=== PATIENT | female | born 1960 | race Caucasian/White ===

== ENCOUNTER 2017-02-19 16:54 | Inpatient (IN) ==
[2017-02-19] MEDS ORDERED: DILTIAZEM 50 MG/10 ML VIAL IV STA (17:25)
[2017-02-19] MEDS ORDERED: ALUM/MAG/SIMETH/LIDO VISC 1:1 30 ML BOTTLE PO STA (17:25)
[2017-02-19] MEDS ORDERED: NITROGLYCERIN 2% OINT 1 INCH/GM PACK TOP STA (17:25)
[2017-02-19] MEDS ORDERED: ONDANSETRON 4 MG/2 ML VIAL IV STA (17:25)
[2017-02-19] MEDS ORDERED: HYDROmorphone 2 MG/1 ML VIAL IV STA (17:25)
[2017-02-19] MEDS ORDERED: ASPIRIN 325 MG TABLET PO STA (17:25)
--- NOTE | 2017-02-19 17:30 | EKG Report ---
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
--- NOTE | 2017-02-19 17:31 | Emergency Department Note ---
Erich Liz Brittany, am scribing for, and in the presence of, Britton Morfin MD 17:28. Navjot Liz Charles R, MD, personally performed the services described in this documentation, ascribed by Tennille Jung in my presence, and it is both accurate and complete [id number] . Arrival - Arrival Chief Complaint: Chest Pain Stated Complaint: chest pain ED Nursing Triage Note: Transfer from [facility] for further evaluation chest pain. +mid-sternal chest pain radiating into left chest, left arm, and mid -back onset 1000am. +nausea/vomiting. +pedal edema noted. Denies shortness of breath. Mode of Arrival: Stretcher Limitations: No Limitations Source: Patient, RN Notes Reviewed Time Seen by Provider: 02/19/17 17:14 - History of Present Illness HPI Narrative: Patient is a 57 y/o white female presenting to the ED by EMS from [facility] for further evaluation of chest pain due to [facility] being on Critical Care Diversion. Patient reports chest pain onset this morning around 1000 and was so severe she was tremorous. She describes pain as occurring mostly in the mid-sternal chest, radiating into the left chest wall, left upper extremity, and middle of her back. She has had some associated nausea , vomiting, and bilateral lower extremity edema with this. She states she has a history of Atrial Fibrillation and has been trying to go into Atrial Fibrillation all day. In room on the monitory patient actively went fin and out of Atrial Fibrillation during history and physical. She reports that within the past 4 years she has gone into Atrial Fibrillation about an estimated 10 times. Patient reports that in the past she has been admitted, placed on Heparin and then cardioverted later on. She does have a history of Mitral Valve Replacement and is currently on Coumadin. Patient has other complaint/pain. Onset (ago): hour(s) (7) Consistency: constant Severity: moderate Severity scale (1-10): 6 Quality: aching Date of Last Menstrual Period: hyst Allergies/Adverse Reactions: Allergies Allergy/AdvReac Type Severity Reaction Status Date / Time codeine Allergy Severe RASH Verified 02/19/17 17:03 iodine Allergy Severe Redness of Verified 02/19/17 17:03 Skin meperidine [From Demerol] Allergy Severe Agitated Verified 02/19/17 17:03 povidone-iodine Allergy Severe Redness of Verified 02/19/17 17:03 [From Betadine] Skin soap [From Betadine] Allergy Severe Redness of Verified 02/19/17 17:03 Skin Sulfa (Sulfonamide Allergy Severe Difficulty Verified 02/19/17 17:03 Antibiotics) Breathing Home Medications: Home Medications Medication Instructions Recorded Confirmed Type ALPRAZolam [Xanax] 0.5 mg PO QAM 02/19/17 02/19/17 History ALPRAZolam [Xanax] 2 mg PO BEDTIME 02/19/17 02/19/17 History Albuterol Inhaler [Proventil 2 puff INH Q6H PRN 02/19/17 02/19/17 History Inhaler] Amiodarone Tab [Cordarone Tab] 200 mg PO DAILY 02/19/17 02/19/17 History Atorvastatin [Lipitor] 40 mg PO BEDTIME 02/19/17 02/19/17 History Docusate Sodium 100 mg PO DAILY 02/19/17 02/19/17 History Fluticasone/Salmeterol 250-50 1 puff INH BID 02/19/17 02/19/17 History [Advair 250-50] Metoprolol Tartrate Tab [Lopressor 25 mg PO BID 02/19/17 02/19/17 History Tab] Oxymorphone HCl [Opana ER] 30 mg PO BID 02/19/17 02/19/17 History Potassium Chloride 8 meq PO DAILY 02/19/17 02/19/17 History Spironolactone 25 mg PO DAILY 02/19/17 02/19/17 History Tiotropium Inhalation [Spiriva 18 mcg INH DAILY 02/19/17 02/19/17 History Handihaler] Torsemide 40 mg PO BID 02/19/17 02/19/17 History Venlafaxine [Effexor] 75 mg PO DAILY 02/19/17 02/19/17 History Warfarin [Coumadin] 7.5 mg PO DAILY 02/19/17 02/19/17 History Review of System - Review of System 12 point system: reviewed and no additional remarkable complaints except as stated - Review of System Constitutional: Absent: chills, diaphoresis, fever Eyes: Absent: vision change Head/Ears/Nose/Throat: Absent: nasal drainage, sore throat Respiratory: Absent: respiratory distress Cardiovascular: Present: as per HPI, chest pain, palpitations, edema Gastrointestinal: Absent: abdominal pain, nausea, vomiting, diarrhea, constipation Genitourinary female: Absent: dysuria, frequency, urgency Musculoskeletal: Present: arm pain, back pain. Absent: leg pain, neck pain Skin: Absent: rash Neurological: Absent: headache Psychiatric: Absent: anxiety, depression Hematological/Lymphatic: Absent: easy bleeding, easy bruising Medical,Surgical,& Family Hx - Medical History Cardio: History of: Cardiac Dysrhythmia (A-fib), CHF, Hypertension Respiratory: History of: COPD Gastrointestinal: History of: GERD - Surgical History Cardiac Surgeries: Sugical HX of: Cardiac Surgery (mitral valve replacement) Reproductive Surgeries: Surgical HX of;: Hysterectomy - Social History Smoking Status: Current some day smoker Frequency of Alcohol Use: None Type of Drug Use: None Exam Vital Signs: Vital Signs Temperature 97.6 F 02/19/17 16:57 Pulse Rate 115 H 02/19/17 16:57 Respiratory Rate 20 02/19/17 16:57 Blood Pressure 122/71 02/19/17 16:57 O2 Sat by Pulse Oximetry 98 02/19/17 16:54 - General General appearance: alert, in no apparent distress - Head Head exam: Present: atraumatic, normocephalic, normal inspection - Eye Eye exam: Present: normal appearance, PERRL, EOMI - ENT ENT exam: Present: normal exam, normal oropharynx - Neck Neck exam: Present: normal inspection, full ROM, trachea midline - Chest Chest inspection: Present: normal inspection, symmetric chest wall rise - Respiratory Respiratory exam: Present: rhonchi (bilateral lung khan). Absent: normal lung sounds bilaterally - Cardiovascular Cardiovascular exam: Present: tachycardia, irregular rhythm. Absent: regular rate, normal rhythm, normal heart sounds (4/6 mechanical heart valve sounds) - Abdominal Exam Abdominal exam: Present: soft, normal bowel sounds. Absent: distention, tenderness - Extremities Exam Extremities exam: Present: full ROM, pedal edema (+2 edema to bilateral lower extremities) - Back Exam Back exam: Present: normal inspection - Neurological Exam Neurological exam: Present: alert, oriented X3, CN II-XII intact. Absent: motor sensory deficit - Psychiatric Psychiatric exam: Present: normal affect, normal mood - Skin Skin exam: Present: warm, dry, intact, normal color Course - Consultations Consultation #1: Hospitalist will admit patient Time: 17:22 Results - Labs CBC & BMP: 02/19/17 17:34 Lab Results: I have reviewed the patients labs Labs: All results reviewed from previous facility Laboratory Tests 02/19/17 02/19/17 17:34 17:34 WBC 7.8 RBC 3.67 L Hgb 10.8 L Hct 33.1 L MCV 90.2 MCH 29 MCHC 32.6 RDW 13.8 Plt Count 338 MPV 9.5 L Neut % (Auto) 53.8 Lymph % (Auto) 33.7 [place] % (Auto) 7.6 Eos % (Auto) 4.0 Baso % (Auto) 0.5 Neut # (Auto) 4.2 Lymph # (Auto) 2.6 [place] # (Auto) 0.6 Eos # (Auto) 0.3 Baso # (Auto) 0.0 Immature Gran % 0.4 Nucleated RBC % 0.0 Immature Gran # 0.03 Nucleated RBCs # 0.00 Urine Color Yellow Urine Appearance Clear Urine pH 6.0 Ur Specific [place] 1.012 Urine Protein Negative Urine Glucose (UA) Negative Urine Ketones 5 Urine Blood Small Urine Nitrate Negative Urine Bilirubin Negative Urine Urobilinogen < 2.0 H Urine Leukocytes Negative Urine RBC 2 Urine WBC 5 Ur Squamous Epith Cells Occasional Urine Mucus Occasional Laboratory Tests 02/19/17 02/19/17 17:34 17:34 INR 3.4 PT Patient/Control Mix 38.8 Urine Opiates Screen Positive H Ur Barbiturates Screen Negative Ur Phencyclidine Scrn Negative U Amphetamine/Methamph Negative U Benzodiazepines Scrn Positive H U Cocaine Metab Screen Negative U Cannabinoids Screen Negative Disposition Clinical Impression: Atypical chest pain, A. fib/flutter with RVR, Congestive heart failure Case discussed with: patient Disposition: Still a Patient Condition: Stable Time of Disposition: 17:30
[2017-02-19 17:46] LABS: Basophils % 0.5 % (0.0-0.8); Eosinophils # 0.3 10*3/uL (0.0-0.87); Hematocrit 33.1 VOL% (35.7-47.0); Hemoglobin 10.8 GM/DL (12.0-16.0); Immature Granulocytes % 0.4 %; Immature Granulocytes Absolute 0.03 #; Lymphocytes # 2.6 10*3/uL (1.4-4.0); Lymphocytes % 33.7 % (21.3-54.2); Mean Corpuscular HGB Conc 32.6 GM/DL (32-36); Mean Corpuscular Hemoglobin 29 PG (27-34); Mean Corpuscular Volume 90.2 FL (87-102); Mean Platelet Volume 9.5 FL (9.6-12.0); Monocytes # 0.6 10*3/uL (0.11-0.8); Monocytes % 7.6 % (1.7-12.7); Neutrophils # 4.2 10*3/uL (1.4-7.4); Neutrophils % 53.8 % (38.7-73.9); Platelet Count 338 T/CUMM (130-400); Red Blood Count 3.67 MC/CUMM (3.8-5.5); Red Cell Distribution Width 13.8 % (9.3-17.3); White Blood Count 7.8 T/CUMM (4-12)
[2017-02-19] MEDS ORDERED: ONDANSETRON 4 MG/2 ML VIAL ONE (17:49)
[2017-02-19] MEDS ORDERED: NITROGLYCERIN 2% OINT 1 INCH/GM PACK TOP ONE (17:49)
[2017-02-19] MEDS ORDERED: ASPIRIN 325 MG TABLET ONE (17:50)
[2017-02-19] MEDS ORDERED: ALUM/MAG/SIMETH/LIDO VISC 1:1 30 ML BOTTLE PO ONE (17:50)
[2017-02-19] MEDS ORDERED: DILTIAZEM 50 MG/10 ML VIAL IV ONE (17:50)
[2017-02-19] MEDS ORDERED: HYDROmorphone 2 MG/1 ML VIAL ONE (17:50)
[2017-02-19 17:52] LABS: Apearance,Urine CLEAR (Clear); Bilirubin,Urine Negative (Negative); Blood, Urine Small mg/dL (Negative); Glucose,Urine (UA) Negative (Negative); Ketones,Urine 5 mg/dL (Negative); Mucus,Urine Occasional /LPF (Occasional); Nitrite,Urine Negative (Negative); Protein,Urine Negative; RBC,Urine 2 /HPF (0-4); Squamous Epithelial Cell,Urine Occasional /HPF (0-10); Urine Color Yellow (Yellow); Urine Specific Gravity 1.012 (1.001-1.035); Urine Urobilinogen < 2.0 EU/DL (0.2-1.0); WBC,Urine 5 /HPF (0-6)
[2017-02-19 17:54] LABS: INR 3.4
[2017-02-19 17:55] LABS: PT Patient Result 38.8 SECS
[2017-02-19 17:57] LABS: Barbiturates Screen,Urine Negative (Negative); Benzodiazepines Screen,Urine Positive (Negative); Cannabinoid Screen,Urine Negative (Negative); Opiate Screen,Urine Positive (Negative); Phencyclidine Screen,Urine Negative (Negative)
[2017-02-19] MEDS ORDERED: ZALEPLON 5 MG CAPSULE PO PRN (17:59)
[2017-02-19] MEDS ORDERED: ACETAMINOPHEN 325 MG TABLET PO PRN (17:59)
[2017-02-19] MEDS ORDERED: MORPHINE 2 MG/1 ML SYRINGE IV PRN (18:06)
--- NOTE | 2017-02-19 18:11 | Hospitalist History & Physical ---
Assessment and Plan (1) Atrial fibrillation with RVR Status: Acute Current Visit: Yes (2) Kidney mass Status: Acute Current Visit: Yes (3) Chronic back pain Status: Acute Current Visit: Yes (4) Atypical chest pain Status: Acute Assessment and plan: Plan for this patient will be admitting to telemetry. Will consult cardiology. I suspect some of her A. fib with RVR might be associated with noncompliant she said that she had not had any heart medications today. Therefore think would be prudent not to start a diltiazem drip at this time. We need to hold her Coumadin and recheck an INR tomorrow. Regarding this pain and this mass in her kidney will request CT report from [facility] and proceed from there. Current Visit: Yes History of Present Illness Chief complaint: Chest pain fast heart rate History of present illness: Ms. Khan is a 57 year old female with past medical history significant for atrial fibrillation valve replacement chronic back pain kidney mass hypertension who woke up this morning with an accelerated heart rate. She had the sensation that she was trembling. She is checked her heart rate was 125 it would go up to 136 at times. She has been having sharp pain that radiates to her shoulder. She has some shortness of breath and diaphoresis associated with it. She reports that she is nauseated. She is also complaining about some pain on her left flank. And notices pain with urination. She has a history of a kidney mass that was discovered at [facility]. She is having pain in this area and wants this addressed while she is here in the hospital. Home Medications Medication Instructions Recorded Confirmed Type ALPRAZolam [Xanax] 0.5 mg PO QAM 02/19/17 02/19/17 History ALPRAZolam [Xanax] 2 mg PO BEDTIME 02/19/17 02/19/17 History Albuterol Inhaler [Proventil 2 puff INH Q6H PRN 02/19/17 02/19/17 History Inhaler] Amiodarone Tab [Cordarone Tab] 200 mg PO DAILY 02/19/17 02/19/17 History Atorvastatin [Lipitor] 40 mg PO BEDTIME 02/19/17 02/19/17 History Docusate Sodium 100 mg PO DAILY 02/19/17 02/19/17 History Fluticasone/Salmeterol 250-50 1 puff INH BID 02/19/17 02/19/17 History [Advair 250-50] Metoprolol Tartrate Tab [Lopressor 25 mg PO BID 02/19/17 02/19/17 History Tab] Oxymorphone HCl [Opana ER] 30 mg PO BID 02/19/17 02/19/17 History Potassium Chloride 8 meq PO DAILY 02/19/17 02/19/17 History Spironolactone 25 mg PO DAILY 02/19/17 02/19/17 History Tiotropium Inhalation [Spiriva 18 mcg INH DAILY 02/19/17 02/19/17 History Handihaler] Torsemide 40 mg PO BID 02/19/17 02/19/17 History Venlafaxine [Effexor] 75 mg PO DAILY 02/19/17 02/19/17 History Warfarin [Coumadin] 7.5 mg PO DAILY 02/19/17 02/19/17 History Allergies Allergy/AdvReac Type Severity Reaction Status Date / Time codeine Allergy Severe RASH Verified 02/19/17 17:03 iodine Allergy Severe Redness of Verified 02/19/17 17:03 Skin meperidine [From Demerol] Allergy Severe Agitated Verified 02/19/17 17:03 povidone-iodine Allergy Severe Redness of Verified 02/19/17 17:03 [From Betadine] Skin soap [From Betadine] Allergy Severe Redness of Verified 02/19/17 17:03 Skin Sulfa (Sulfonamide Allergy Severe Difficulty Verified 02/19/17 17:03 Antibiotics) Breathing Medical,Surgical,& Family Hx - Medical History Cardio: History of: Cardiac Dysrhythmia (A-fib), CHF, Hypertension Respiratory: History of: COPD Gastrointestinal: History of: GERD - Surgical History Cardiac Surgeries: Sugical HX of: Cardiac Surgery (mitral valve replacement) Reproductive Surgeries: Surgical HX of;: Hysterectomy - Family History Family History: Reports;: Family Cancer, Family Heart Disease - Social History Smoking Status: Current some day smoker Frequency of Alcohol Use: None Type of Drug Use: None 12 point system: reviewed and no additional remarkable complaints except as stated Exam - Constitutional Vitals: - General General appearance: alert, in no apparent distress - Head Head exam: Present: atraumatic, normocephalic, normal inspection - Eye Eye exam: Present: normal appearance, PERRL, EOMI - ENT ENT exam: Present: normal exam, normal oropharynx - Neck Neck exam: Present: normal inspection, full ROM, trachea midline - Chest Chest inspection: Present: normal inspection, symmetric chest wall rise - Respiratory Respiratory exam: Present: Coarse breath sounds bilaterally - Cardiovascular Cardiovascular exam: Present: tachycardia, irregular rhythm mechanical heart valve sounds appreciated. - Abdominal Exam Abdominal exam: Present: soft, normal bowel sounds. Absent: distention, tenderness - Extremities Exam Extremities exam: Present: full ROM, pedal edema (+2 edema to bilateral lower extremities) - Back Exam Back exam: Present: normal inspection some left lower tenderness appreciated - Neurological Exam Neurological exam: Present: alert, oriented X3, CN II-XII intact. Absent: motor sensory deficit - Psychiatric Psychiatric exam: Present: normal affect, normal mood - Skin Skin exam: Present: warm, dry, intact, normal color Results - Labs CBC & BMP: 02/19/17 17:34 Labs: Labs from outside facility proBNP 2159 troponin less than 0.03 CK-MB 1 starting anatomy and valve replacement surgery without acute pathology previous cervical fusion white count 7.5 hemoglobin 11.9 hematocrit 36.4 platelets 329 INR 3.1 sodium 141 potassium 3.8 chloride 103 bicarb 26 creatinine 1.1 BUN 22 calcium 9.4 glucose 94 total bili 0.6 total protein 7.4 albumin 4.5 globulin 2.9 ALT 18 AST 33 magnesium 2.2 creatinine kinase 109
[2017-02-19 18:26] LABS: Bilirubin,Total 0.5 MG/DL (0.2-1.0); Calcium 9.2 MG/DL (8.5-10.1); Magnesium 2.4 MG/DL (1.8-2.4); Osmolality,Calculated 281.3 MOS/KG (273-304); Total Protein 6.7 G/DL (6.4-8.3)
[2017-02-19 18:43] LABS: Risk Ratio 3.08
[2017-02-19] MEDS: IPRATROPIUM 500 MCG/2.5 ML NEB RESP TX SCH (19:19)
[2017-02-19] MEDS ORDERED: ALBUTEROL 2.5 MG/3 ML NEB RESP TX PRN (19:30)
[2017-02-19] MEDS: ATORVASTATIN 40 MG TABLET PO SCH (20:41)
[2017-02-19] MEDS: ALPRAZolam 0.5 MG TABLET PO SCH (20:41)
[2017-02-19] MEDS: AMIODARONE 200 MG TABLET PO SCH (20:41)
[2017-02-19] MEDS: ONDANSETRON 4 MG/2 ML VIAL IV PRN (20:41)
[2017-02-19] MEDS: METOPROLOL TARTRATE 25 MG TABLET PO SCH (20:41)
[2017-02-19] MEDS: NITROGLYCERIN 2% OINT 1 INCH/GM PACK TOP SCH (20:42)
[2017-02-19] MEDS: FLUTICASONE/SALMETEROL 250-50 DISKUS 14 DOSE INH SCH (20:42)
[2017-02-19] MEDS: TORSEMIDE 20 MG TABLET PO SCH (20:50)
[2017-02-19] MEDS ORDERED: OXYMORPHONE HCL 30 MG PO SCH (21:00)
[2017-02-19] MEDS: MORPHINE 2 MG/1 ML SYRINGE IV PRN (22:15)
[2017-02-20] MEDS: NITROGLYCERIN 2% OINT 1 INCH/GM PACK TOP SCH ×4 (02:06→17:26)
[2017-02-20] MEDS: MORPHINE 2 MG/1 ML SYRINGE IV PRN ×2 (03:22→08:51)
[2017-02-20] MEDS: ONDANSETRON 4 MG/2 ML VIAL IV PRN ×3 (03:22→21:48)
[2017-02-20 05:33] LABS: INR 3.3; PT Patient Result 37.5 SECS
--- NOTE | 2017-02-20 07:02 | Physician Query Form ---
CLICK EDIT DOCUMENT TO SELECT QUERY ANSWER --> OK --> SIGN Dee Israel RN, CCDS Certified Clinical Varnish Finisher W) [phone] (f) [phone] [email or web address] PROVIDERS: Make your selection(s) from the choices in EACH section by typing an "x" and enter comments in the comment section. Please use your independent medical judgment in providing your response. This request does not imply that any particular answer is desired or expected. CLINICAL INDICATORS: (Providers should not edit this section) The medical record indicates that the patient was admitted with AF/RVR, BNP of 448#, "Present: rhonchi (bilateral lung khan)", history of CHF, and the patient is a on Aldactone (PO). Please provide further specificity regarding CHF. ACUITY: ( ) Chronic ( ) Acute on Chronic ( ) Clinically unable to determine TYPE: ( ) Systolic ( ) Diastolic ( ) Combined Systolic/Diastolic ( ) Other, please specify: ( ) Clinically unable to determine ( ) The patient does NOT have CHF COMMENTS: Use of terms such as suspected, likely, or probable (associated with a specific diagnosis that is being evaluated, monitored, or treated as if it exists) are acceptable and can be restated in the discharge summary if not ruled out. MTDD
[2017-02-20] MEDS: IPRATROPIUM 500 MCG/2.5 ML NEB RESP TX SCH ×4 (07:05→20:43)
[2017-02-20] MEDS: DOCUSATE SODIUM 100 MG CAPSULE PO SCH (08:57)
[2017-02-20] MEDS: POTASSIUM CHLORIDE 8 MEQ CAPSULE PO SCH (08:57)
[2017-02-20] MEDS: AMIODARONE 200 MG TABLET PO SCH ×2 (08:57→21:46)
[2017-02-20] MEDS: METOPROLOL TARTRATE 25 MG TABLET PO SCH ×3 (08:58→21:47)
[2017-02-20] MEDS: ALPRAZolam 0.5 MG TABLET PO SCH ×2 (08:58→21:47)
[2017-02-20] MEDS: VENLAFAXINE 75 MG TABLET PO SCH (08:58)
[2017-02-20] MEDS: SPIRONOLACTONE 25 MG TABLET PO SCH ×2 (08:58→09:09)
[2017-02-20] MEDS: FLUTICASONE/SALMETEROL 250-50 DISKUS 14 DOSE INH SCH ×2 (08:59→22:46)
[2017-02-20] MEDS: TORSEMIDE 20 MG TABLET PO SCH ×3 (08:59→21:45)
--- NOTE | 2017-02-20 09:06 | EKG Report ---
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
--- NOTE | 2017-02-20 09:09 | Ultrasound Report ---
Exam: US renal Bilateral Date: 02/20/2017 7:28 AM Comparison: None Indication: Flank pain, renal mass Technique:[Multiple transabdominal real-time scans were obtained of the kidneys. Color flow scans obtained. Ultrasound images were captured and stored.] Findings: Right kidney measures 108 x 47 x 42 mm. Left kidney measures 109 x 52 x 43 mm. No hydronephrosis. 21 x 19 x 14 mm solid left midpole renal mass. 41 x 38 x 38 mm solid left lower pole renal mass. Color flow documented in the kidneys. Impression: No hydronephrosis. 21 mm and 41 mm solid left renal masses which may be related to renal cell carcinoma, etc. Renal CT recommended for further evaluation. PROCEDURE INTERPRETED AT [facility] DEPARTMENT OF RADIOLOGY Final Report Signed by: Dr. Christa Marcum
--- NOTE | 2017-02-20 09:30 | Cardiology Consult Note ---
<Marti Barry - Last Filed: 02/20/17 09:28> Assessment and Plan - Time spent with patient Time spent with patient: Greater than 30 minutes (1) Atrial fibrillation with RVR Status: Acute Assessment and plan: Patient has history of paroxysmal atrial fibrillation and takes amiodarone 200 mg daily at home. At this point, we give her a one-time dose of amiodarone IV and increase her amiodarone to 400 mg p.o. twice daily. Continue beta-blockade and Coumadin. Daily INR. BNP mildly elevated at 448. Patient confirms history of CHF. I have ordered a chest x-ray and echocardiogram to further evaluate this. Further plan and addendum to follow per Dr. Ge. Current Visit: Yes (2) Atypical chest pain Status: Acute Assessment and plan: This is most likely secondary to patient's atrial fibrillation. Patient has ruled out for myocardial infarction, troponin negative 3. I suspect this will resolve once she is rate controlled. Current Visit: Yes (3) Kidney mass Status: Acute Assessment and plan: Patient underwent renal ultrasound this morning which revealed a 21 mm and 41 mm left renal mass. Defer further workup of this to hospital medicine. Current Visit: Yes (4) COPD (chronic obstructive pulmonary disease) Status: Chronic Assessment and plan: This is clinically stable. Continue current plan of care. Defer management to hospital medicine. Current Visit: Yes (5) Tobacco abuse Status: Chronic Assessment and plan: Smoking cessation encouraged. Current Visit: Yes (6) Chronic back pain Status: Chronic Current Visit: Yes History of Present Illness - Data of Consult Patient: known to practice within the last 3 years Consult date: 02/20/17 Requesting Physician: Socrates Ingram - Consult Narrative Reason for consult: A. 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 Khan is a 57 year old female who is routinely followed by Dr. Bee at [place]. Patient was transferred from [facility] for further evaluation of chest discomfort and atrial fibrillation with rapid ventricular response. Patient has cardiac risk factors significant for hyperlipidemia, sedentary lifestyle and current everyday smoker. Patient has past medical history of paroxysmal atrial fibrillation, [place] mechanical mitral valve ( on chronic anticoagulation with Coumadin), COPD, CHF and chronic back pain. 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 At that time, her ejection fraction was noted to be 70%. She reports that she last saw Dr. Bee approximately 3-4 months ago. She was in her usual state of health until yesterday morning when she awoke she reports feeling "jittery." She tells me that she could tell that she was in atrial fibrillation. She took her BP with home machine, SBP was 187 with a heart rate of 125. At that time she knew that she needed to present to ER for further evaluation. She confirms mild mid sternal sharp chest pain, dizziness, palpitations and shortness of breath was associated with this. Her chest pain is not worsened with exertion. She is unable to identify any specific alleviating or aggravating factors. Upon arrival to ER he was noted to be atrial fibrillation with a heart rate of 120. She was given 10 mg IV Cardizem in the ER. She remains in atrial fibrillation with a rapid ventricular response with heart rate ranging from 110-120. She has been admitted under Hospitalist's service and cardiology has been consulted further management of her atrial fibrillation. Of note, patient also confirms orthopnea and dyspnea on exertion. BNP is noted to be 448. I have ordered a chest x-ray as well as echocardiogram. Patient was seen and examined on the telemetry unit. She remains in atrial fibrillation with heart rate of 116. She is currently being anticoagulated with Coumadin. Patient has mechanical mitral valve, INR today is therapeutic at 3.4. Will continue with daily INRs. Patient continues to complain of mild chest discomfort. She reports that this has been constant since yesterday morning. However, her troponin has been negative 3 checks. EKG is unchanged. BNP is mildly elevated at 448. I have ordered a chest x-ray and echocardiogram. She underwent renal ultrasound earlier this morning which revealed a 21 mm and 41 mm left renal mass. Will defer further workup of this to hospital medicine. At this point, we will increase her amiodarone to 400 mg BID and attempt to rate control her. Will discuss further with Dr. Ge, further plan and addendum to follow. CC: Vicente Muñoz MD - Home Medications and Allergies Home Medications: Home Medications Medication Instructions Recorded Confirmed Type ALPRAZolam [Xanax] 0.5 mg PO QAM 02/19/17 02/19/17 History ALPRAZolam [Xanax] 2 mg PO BEDTIME 02/19/17 02/19/17 History Albuterol Inhaler [Proventil 2 puff INH Q6H PRN 02/19/17 02/19/17 History Inhaler] Amiodarone Tab [Cordarone Tab] 200 mg PO DAILY 02/19/17 02/19/17 History Atorvastatin [Lipitor] 40 mg PO BEDTIME 02/19/17 02/19/17 History Docusate Sodium 100 mg PO DAILY 02/19/17 02/19/17 History Fluticasone/Salmeterol 250-50 1 puff INH BID 02/19/17 02/19/17 History [Advair 250-50] Metoprolol Tartrate Tab [Lopressor 25 mg PO BID 02/19/17 02/19/17 History Tab] Oxymorphone HCl [Opana ER] 30 mg PO BID 02/19/17 02/19/17 History Potassium Chloride 8 meq PO DAILY 02/19/17 02/19/17 History Spironolactone 25 mg PO DAILY 02/19/17 02/19/17 History Tiotropium Inhalation [Spiriva 18 mcg INH DAILY 02/19/17 02/19/17 History Handihaler] Torsemide 40 mg PO BID 02/19/17 02/19/17 History Venlafaxine [Effexor] 75 mg PO DAILY 02/19/17 02/19/17 History Warfarin [Coumadin] 7.5 mg PO DAILY 02/19/17 02/19/17 History Allergies/Adverse Reactions: Allergies Allergy/AdvReac Type Severity Reaction Status Date / Time codeine Allergy Severe RASH Verified 02/19/17 17:03 iodine Allergy Severe Redness of Verified 02/19/17 17:03 Skin meperidine [From Demerol] Allergy Severe Agitated Verified 02/19/17 17:03 povidone-iodine Allergy Severe Redness of Verified 02/19/17 17:03 [From Betadine] Skin soap [From Betadine] Allergy Severe Redness of Verified 02/19/17 17:03 Skin Sulfa (Sulfonamide Allergy Severe Difficulty Verified 02/19/17 17:03 Antibiotics) Breathing - Constitutional Constitutional: Present: weakness. Absent: chills, fever(s), frequent falls, headache(s) - Cardiovascular Cardiovascular: Present: as per HPI, dyspnea, edema, lightheadedness, orthopnea , palpitations. Absent: diaphoresis, radiating jaw, neck or arm pain - Respiratory Respiratory: Present: dyspnea. Absent: cough, hemoptysis, wheezing, snoring, pain on inspiration, change in phlegm color - Gastrointestinal Gastrointestinal: Absent: abdominal pain, change in bowel habits, coffee ground emesis, constipation, cramping, diarrhea, hematemesis, hematochezia, loose stools, melena, nausea, vomiting - Genitourinary Genitourinary: Absent: dysuria, hematuria - Neurological Neurological: Present: dizziness. Absent: abnormal gait, abnormal speech, behavioral changes, frequent falls, headache(s), syncope - Hematologic/Lymphatic Hematologic/Lymphatic: Absent: easy bleeding, easy bruising, lymphadenopathy Medical,Surgical,& Family Hx - Medical History Cardio: History of: Cardiac Dysrhythmia (A-fib), CHF, Hypertension Respiratory: History of: COPD Renal: History of: Renal Problems (renal mass) Gastrointestinal: History of: GERD Musculoskeletal: History of: Back/Neck Problems - Surgical History Cardiac Surgeries: Sugical HX of: Cardiac Catheterization, Cardiac Surgery ( mitral valve replacement) Abdominal Surgeries: Surgical HX of: Abdominal Surgery Reproductive Surgeries: Surgical HX of;: Hysterectomy - Family History Family History: Reports;: Family Cancer Denies;: Family Heart Disease - Social History Smoking Status: Current every day smoker Frequency of Alcohol Use: None Type of Drug Use: None Physical Examination Vital Signs Temp Pulse Resp BP Pulse Ox 97.6 F 115 H 20 122/71 98 02/19/17 16:54 02/19/17 16:54 02/19/17 16:54 02/19/17 16:54 02/19/17 16:54 General: Present: Appears Well, No Apparent Distress HEENT: Present: Normocephaly Neck: Present: Supple Neck, Midline Trachea, No JVD/HJR, No Masses, No Bruit Cardiac: Present: Irregularly Regular, Tachycardia, Other (mechanical Mitral valve sounds appreciated ) Lungs: Present: Normal Exam, Clear Ascult./Percussion, Normal Breath Sounds, No Wheeze, Rales, Rhonchi Abdomen: Present: Soft, Active Bowel Sounds, Non-Tender. Absent: Firm, Distended Skin: Present: Clear. Absent: Rash, Suspicious Lesions, Ulceration Extremities: Present: Normal Gait, No Clubbing, No Cyanosis, Normal Upper Extr. Pulses, Normal Lower Extr. Pulses, Edema (trace BLE edema ) Result/EKG - Labs CBC & BMP: 02/19/17 17:34 02/19/17 17:34 Lab Results: I have reviewed the past 24 hour labs Labs: Laboratory Results - last 24 hr 02/19/17 02/19/17 02/19/17 17:34 17:34 17:34 WBC RBC Hgb Hct MCV MCH MCHC RDW Plt Count MPV Neut % (Auto) Lymph % (Auto) Mckenzie % (Auto) Eos % (Auto) Baso % (Auto) Neut # (Auto) Lymph # (Auto) Mckenzie # (Auto) Eos # (Auto) Baso # (Auto) Immature Gran % Nucleated RBC % Immature Gran # Nucleated RBCs # INR 3.4 PT Patient/Control Mix 38.8 Sodium 141 Potassium 4.0 Chloride 108 H Carbon Dioxide 26 Anion Gap 11.0 BUN 19 H Creatinine 1.10 H GFR Calculation 61 BUN/Creatinine Ratio 17.00 Glucose 84 Calculated Osmolality 281.3 Calcium 9.2 Magnesium 2.4 Total Bilirubin 0.50 AST 20 ALT 10 L Alkaline Phosphatase 75 Troponin I B-Natriuretic Peptide Total Protein 6.7 Albumin 4.0 Globulin 2.7 Albumin/Globulin Ratio 1.4 Triglycerides Cholesterol LDL Cholesterol VLDL Cholesterol HDL Cholesterol Heart Disease Risk Ratio Lipase 146.0 Urine Color Yellow Urine Appearance Clear Urine pH 6.0 Ur Specific Candler 1.012 Urine Protein Negative Urine Glucose (UA) Negative Urine Ketones 5 Urine Blood Small Urine Nitrate Negative Urine Bilirubin Negative Urine Urobilinogen < 2.0 H Urine Leukocytes Negative Urine RBC 2 Urine WBC 5 Ur Squamous Epith Cells Occasional Urine Mucus Occasional Ur Culture Indicated? Not indicated Urine Opiates Screen Ur Barbiturates Screen Ur Phencyclidine Scrn U Amphetamine/Methamph U Benzodiazepines Scrn U Cocaine Metab Screen U Cannabinoids Screen 02/19/17 02/19/17 02/19/17 17:34 17:34 17:34 WBC 7.8 RBC 3.67 L Hgb 10.8 L Hct 33.1 L MCV 90.2 MCH 29 MCHC 32.6 RDW 13.8 Plt Count 338 MPV 9.5 L Neut % (Auto) 53.8 Lymph % (Auto) 33.7 Mckenzie % (Auto) 7.6 Eos % (Auto) 4.0 Baso % (Auto) 0.5 Neut # (Auto) 4.2 Lymph # (Auto) 2.6 Mckenzie # (Auto) 0.6 Eos # (Auto) 0.3 Baso # (Auto) 0.0 Immature Gran % 0.4 Nucleated RBC % 0.0 Immature Gran # 0.03 Nucleated RBCs # 0.00 INR PT Patient/Control Mix Sodium Potassium Chloride Carbon Dioxide Anion Gap BUN Creatinine GFR Calculation BUN/Creatinine Ratio Glucose Calculated Osmolality Calcium Magnesium Total Bilirubin AST ALT Alkaline Phosphatase Troponin I B-Natriuretic Peptide 448 H Total Protein Albumin Globulin Albumin/Globulin Ratio Triglycerides Cholesterol LDL Cholesterol VLDL Cholesterol HDL Cholesterol Heart Disease Risk Ratio Lipase Urine Color Urine Appearance Urine pH Ur Specific Candler Urine Protein Urine Glucose (UA) Urine Ketones Urine Blood Urine Nitrate Urine Bilirubin Urine Urobilinogen Urine Leukocytes Urine RBC Urine WBC Ur Squamous Epith Cells Urine Mucus Ur Culture Indicated? Urine Opiates Screen Positive H Ur Barbiturates Screen Negative Ur Phencyclidine Scrn Negative U Amphetamine/Methamph Negative U Benzodiazepines Scrn Positive H U Cocaine Metab Screen Negative U Cannabinoids Screen Negative 02/19/17 02/19/17 02/19/17 17:34 17:34 21:07 WBC RBC Hgb Hct MCV MCH MCHC RDW Plt Count MPV Neut % (Auto) Lymph % (Auto) Mckenzie % (Auto) Eos % (Auto) Baso % (Auto) Neut # (Auto) Lymph # (Auto) Mckenzie # (Auto) Eos # (Auto) Baso # (Auto) Immature Gran % Nucleated RBC % Immature Gran # Nucleated RBCs # INR PT Patient/Control Mix Sodium Potassium Chloride Carbon Dioxide Anion Gap BUN Creatinine GFR Calculation BUN/Creatinine Ratio Glucose Calculated Osmolality Calcium Magnesium Total Bilirubin AST ALT Alkaline Phosphatase Troponin I < 0.015 < 0.015 B-Natriuretic Peptide Total Protein Albumin Globulin Albumin/Globulin Ratio Triglycerides 120 Cholesterol 185 LDL Cholesterol 102.0 VLDL Cholesterol 24.0 HDL Cholesterol 60 Heart Disease Risk Ratio 3.08 Lipase Urine Color Urine Appearance Urine pH Ur Specific Candler Urine Protein Urine Glucose (UA) Urine Ketones Urine Blood Urine Nitrate Urine Bilirubin Urine Urobilinogen Urine Leukocytes Urine RBC Urine WBC Ur Squamous Epith Cells Urine Mucus Ur Culture Indicated? Urine Opiates Screen Ur Barbiturates Screen Ur Phencyclidine Scrn U Amphetamine/Methamph U Benzodiazepines Scrn U Cocaine Metab Screen U Cannabinoids Screen 02/20/17 02/20/17 00:01 04:33 WBC RBC Hgb Hct MCV MCH MCHC RDW Plt Count MPV Neut % (Auto) Lymph % (Auto) Mckenzie % (Auto) Eos % (Auto) Baso % (Auto) Neut # (Auto) Lymph # (Auto) Mckenzie # (Auto) Eos # (Auto) Baso # (Auto) Immature Gran % Nucleated RBC % Immature Gran # Nucleated RBCs # INR 3.3 PT Patient/Control Mix 37.5 Sodium Potassium Chloride Carbon Dioxide Anion Gap BUN Creatinine GFR Calculation BUN/Creatinine Ratio Glucose Calculated Osmolality Calcium Magnesium Total Bilirubin AST ALT Alkaline Phosphatase Troponin I < 0.015 B-Natriuretic Peptide Total Protein Albumin Globulin Albumin/Globulin Ratio Triglycerides Cholesterol LDL Cholesterol VLDL Cholesterol HDL Cholesterol Heart Disease Risk Ratio Lipase Urine Color Urine Appearance Urine pH Ur Specific Candler Urine Protein Urine Glucose (UA) Urine Ketones Urine Blood Urine Nitrate Urine Bilirubin Urine Urobilinogen Urine Leukocytes Urine RBC Urine WBC Ur Squamous Epith Cells Urine Mucus Ur Culture Indicated? Urine Opiates Screen Ur Barbiturates Screen Ur Phencyclidine Scrn U Amphetamine/Methamph U Benzodiazepines Scrn U Cocaine Metab Screen U Cannabinoids Screen <Socrates Ge Vladislav - Last Filed: 02/20/17 11:34> History of Present Illness - Consult Narrative History of present illness: This personally interviewed and examined by me and chart reviewed. Discussed this patient's case with Marti Barry NP. Agree with the assessment evaluation and examination. In addition estimation Ms. Khan is a 57 year old female who was admitted with an episode of atrial fibrillation rapid ventricular response. She has a prior history of atrial fibrillation and episodes of RVR. She has been on amiodarone. She has been on warfarin is been adequately anticoagulated is demonstrated are INR admission. This though is persistently for her mechanical [employer]ir mitral valve. She is followed by Dr. Bee at [place]. And her ventricle response is still elevated we will manage his with medications as well as bolus of amiodarone. If she does not convert to sinus rhythm after cardioversion would be a consideration. Since she is adequately anticoagulated she will be at low stroke risk. Her troponins have been undetectable 3. She has chest pain radiating through to her back but will but is had this chronically. She is his lower back and neck pain. She takes chronic pain medications at home. She is followed by a physician in [facility] pain clinic. Most marked conversation was centered around her pain medications and the fact that she may need more pain medication she at least and she may run out before her appointment. CC: Vicente Muñoz MD Physical Examination Vital Signs Temp Pulse Resp BP Pulse Ox 97.6 F 115 H 20 122/71 98 02/19/17 16:54 02/19/17 16:54 02/19/17 16:54 02/19/17 16:54 02/19/17 16:54 I Other: Exam is as noted. Lungs are clear Cardiovascular irregular rhythm is tachycardic. She has crisp mechanical valve sounds of her [employer] mitral valve prosthesis. Extremities: No edema. Neurologic: Alert and cooperative but is anxious. Psychiatric: Anxious but cognitive function is normal. Result/EKG - Labs CBC & BMP: 02/19/17 17:34 02/19/17 17:34 Labs: Laboratory Results - last 24 hr 02/19/17 02/19/17 02/19/17 17:34 17:34 17:34 WBC RBC Hgb Hct MCV MCH MCHC RDW Plt Count MPV Neut % (Auto) Lymph % (Auto) Mckenzie % (Auto) Eos % (Auto) Baso % (Auto) Neut # (Auto) Lymph # (Auto) Mckenzie # (Auto) Eos # (Auto) Baso # (Auto) Immature Gran % Nucleated RBC % Immature Gran # Nucleated RBCs # INR 3.4 PT Patient/Control Mix 38.8 Sodium 141 Potassium 4.0 Chloride 108 H Carbon Dioxide 26 Anion Gap 11.0 BUN 19 H Creatinine 1.10 H GFR Calculation 61 BUN/Creatinine Ratio 17.00 Glucose 84 Calculated Osmolality 281.3 Calcium 9.2 Magnesium 2.4 Total Bilirubin 0.50 AST 20 ALT 10 L Alkaline Phosphatase 75 Troponin I B-Natriuretic Peptide Total Protein 6.7 Albumin 4.0 Globulin 2.7 Albumin/Globulin Ratio 1.4 Triglycerides Cholesterol LDL Cholesterol VLDL Cholesterol HDL Cholesterol Heart Disease Risk Ratio Lipase 146.0 Urine Color Yellow Urine Appearance Clear Urine pH 6.0 Ur Specific Candler 1.012 Urine Protein Negative Urine Glucose (UA) Negative Urine Ketones 5 Urine Blood Small Urine Nitrate Negative Urine Bilirubin Negative Urine Urobilinogen < 2.0 H Urine Leukocytes Negative Urine RBC 2 Urine WBC 5 Ur Squamous Epith Cells Occasional Urine Mucus Occasional Ur Culture Indicated? Not indicated Urine Opiates Screen Ur Barbiturates Screen Ur Phencyclidine Scrn U Amphetamine/Methamph U Benzodiazepines Scrn U Cocaine Metab Screen U Cannabinoids Screen 02/19/17 02/19/17 02/19/17 17:34 17:34 17:34 WBC 7.8 RBC 3.67 L Hgb 10.8 L Hct 33.1 L MCV 90.2 MCH 29 MCHC 32.6 RDW 13.8 Plt Count 338 MPV 9.5 L Neut % (Auto) 53.8 Lymph % (Auto) 33.7 Mckenzie % (Auto) 7.6 Eos % (Auto) 4.0 Baso % (Auto) 0.5 Neut # (Auto) 4.2 Lymph # (Auto) 2.6 Mckenzie # (Auto) 0.6 Eos # (Auto) 0.3 Baso # (Auto) 0.0 Immature Gran % 0.4 Nucleated RBC % 0.0 Immature Gran # 0.03 Nucleated RBCs # 0.00 INR PT Patient/Control Mix Sodium Potassium Chloride Carbon Dioxide Anion Gap BUN Creatinine GFR Calculation BUN/Creatinine Ratio Glucose Calculated Osmolality Calcium Magnesium Total Bilirubin AST ALT Alkaline Phosphatase Troponin I B-Natriuretic Peptide 448 H Total Protein Albumin Globulin Albumin/Globulin Ratio Triglycerides Cholesterol LDL Cholesterol VLDL Cholesterol HDL Cholesterol Heart Disease Risk Ratio Lipase Urine Color Urine Appearance Urine pH Ur Specific Candler Urine Protein Urine Glucose (UA) Urine Ketones Urine Blood Urine Nitrate Urine Bilirubin Urine Urobilinogen Urine Leukocytes Urine RBC Urine WBC Ur Squamous Epith Cells Urine Mucus Ur Culture Indicated? Urine Opiates Screen Positive H Ur Barbiturates Screen Negative Ur Phencyclidine Scrn Negative U Amphetamine/Methamph Negative U Benzodiazepines Scrn Positive H U Cocaine Metab Screen Negative U Cannabinoids Screen Negative 02/19/17 02/19/17 02/19/17 17:34 17:34 21:07 WBC RBC Hgb Hct MCV MCH MCHC RDW Plt Count MPV Neut % (Auto) Lymph % (Auto) Mckenzie % (Auto) Eos % (Auto) Baso % (Auto) Neut # (Auto) Lymph # (Auto) Mckenzie # (Auto) Eos # (Auto) Baso # (Auto) Immature Gran % Nucleated RBC % Immature Gran # Nucleated RBCs # INR PT Patient/Control Mix Sodium Potassium Chloride Carbon Dioxide Anion Gap BUN Creatinine GFR Calculation BUN/Creatinine Ratio Glucose Calculated Osmolality Calcium Magnesium Total Bilirubin AST ALT Alkaline Phosphatase Troponin I < 0.015 < 0.015 B-Natriuretic Peptide Total Protein Albumin Globulin Albumin/Globulin Ratio Triglycerides 120 Cholesterol 185 LDL Cholesterol 102.0 VLDL Cholesterol 24.0 HDL Cholesterol 60 Heart Disease Risk Ratio 3.08 Lipase Urine Color Urine Appearance Urine pH Ur Specific Candler Urine Protein Urine Glucose (UA) Urine Ketones Urine Blood Urine Nitrate Urine Bilirubin Urine Urobilinogen Urine Leukocytes Urine RBC Urine WBC Ur Squamous Epith Cells Urine Mucus Ur Culture Indicated? Urine Opiates Screen Ur Barbiturates Screen Ur Phencyclidine Scrn U Amphetamine/Methamph U Benzodiazepines Scrn U Cocaine Metab Screen U Cannabinoids Screen 02/20/17 02/20/17 00:01 04:33 WBC RBC Hgb Hct MCV MCH MCHC RDW Plt Count MPV Neut % (Auto) Lymph % (Auto) Mckenzie % (Auto) Eos % (Auto) Baso % (Auto) Neut # (Auto) Lymph # (Auto) Mckenzie # (Auto) Eos # (Auto) Baso # (Auto) Immature Gran % Nucleated RBC % Immature Gran # Nucleated RBCs # INR 3.3 PT Patient/Control Mix 37.5 Sodium Potassium Chloride Carbon Dioxide Anion Gap BUN Creatinine GFR Calculation BUN/Creatinine Ratio Glucose Calculated Osmolality Calcium Magnesium Total Bilirubin AST ALT Alkaline Phosphatase Troponin I < 0.015 B-Natriuretic Peptide Total Protein Albumin Globulin Albumin/Globulin Ratio Triglycerides Cholesterol LDL Cholesterol VLDL Cholesterol HDL Cholesterol Heart Disease Risk Ratio Lipase Urine Color Urine Appearance Urine pH Ur Specific Candler Urine Protein Urine Glucose (UA) Urine Ketones Urine Blood Urine Nitrate Urine Bilirubin Urine Urobilinogen Urine Leukocytes Urine RBC Urine WBC Ur Squamous Epith Cells Urine Mucus Ur Culture Indicated? Urine Opiates Screen Ur Barbiturates Screen Ur Phencyclidine Scrn U Amphetamine/Methamph U Benzodiazepines Scrn U Cocaine Metab Screen U Cannabinoids Screen
[2017-02-20] MEDS ORDERED: AMIODARONE 200 MG TABLET PO ONE (09:47)
--- NOTE | 2017-02-20 09:48 | XRay Report ---
XR chest 2V Indication: Shortness of breath Comparison: Chest x-ray dated September 14, 2014 Technique: Frontal and lateral views of the chest Findings: Nonenlarged heart status post sternotomy/cardiac valve replacement. Chronic change of the lungs without focal consolidation, pleural effusion, or pneumothorax. Osseous and surrounding soft tissue structures appear grossly unchanged. IMPRESSION: No acute cardiopulmonary process demonstrated. PROCEDURE INTERPRETED AT [facility] DEPARTMENT OF RADIOLOGY Final Report Signed by: Dr Cornelio Schafer
[2017-02-20] MEDS: ASCORBIC ACID 500 MG TABLET PO SCH ×2 (11:13→21:46)
[2017-02-20] MEDS ORDERED: AMIODARONE INJ 150 MG in DEXTROSE 5% 100 ML IV ONE (11:30)
[2017-02-20] MEDS ORDERED: NICOTINE 21 MG/24 HR PATCH TRANSDERM PRN (16:29)
--- NOTE | 2017-02-20 16:32 | ECHO Report ---
Shelbi Khan 02/20/2017 Exam Date: 14:31 Referring Physician: Karina Wilson Technologist: SUHA Age: 57 Ht (in): 64 Wt (lb): 202 FExam Location: [facility] Gender: Echo [id number]: Chest pain, unspecified, Shortness Indications:of breath, Atrial fibrillation, Kidney mass, COPD, Nicotine dependence, cigarettes, uncomplicated, Chronic back pain, [place] mechanical MV valve, Dizziness and giddiness, Orthopnea, Palpitations BP: 92 / 58 HR: 107 Atrial fibrillationRhythm: Technical Quality: IMPRESSIONS 1. Underlying rhythm is atrial fibrillation with RVR. 2. Left ventricle is normal size with mild concentric left ventricular hypertrophy and ejection fraction of 55+ percent. 3. Right ventricle is the upper limits of normal size to mildly dilated. Systolic function appears to be normal. 4. Right and left atrium are mild to moderately dilated. 5. Aortic valve is slight sclerotic but without stenosis or insufficiency. 6. Mechanical prosthetic mitral valve appears to be functioning normally. 7. Mild to moderate tricuspid regurgitation with mild pulmonic insufficiency. 8. At worst mildly elevated right-sided pressures. MEASUREMENTS (Male / Female) Normal Values 2D ECHO LV Diastolic Diameter PLAX 4.8 cm 4.2 - 5.9 / 3.9 - 5.3 cm LV Systolic Diameter PLAX 3.8 cm LV Fractional Shortening PLAX 21.0 % IVS Diastolic Thickness 1.3 cm 0.6 - 1.0 / 0.6 - 0.9 cm LVPW Diastolic Thickness 1.3 cm 0.6 - 1.0 / 0.6 - 0.9 cm RV Internal Dim ED PLAX 3.0 cm Aortic Root Diameter 3.0 cm LA Systolic Diameter LX 4.4 cm 3.0 - 4.0 / 2.7 - 3.8 cm DOPPLER TR Peak Velocity 293.0 cm/s TR Peak Gradient 34.3 mmHg FINDINGS Left Ventricle Normal left ventricular cavity size. Mild left ventricular hypertrophy. Left ventricular ejection fraction is estimated at 55 %. Right Ventricle Mildly increased right ventricular size. Systolic function normal. Right Atrium Mild to moderately increased right atrial size. Left Atrium Mild to moderately increased left atrial size. Mitral Valve Prosthetic mechanical mitral valve mean gradient is 20 mmHg at a heart rate of 107 bpm. Mild mitral valve regurgitation. Aortic Valve Aortic valve is a tricuspid structure with sclerosis. Mean gradient 15 mmHg, KASEY 3 cm. Tricuspid Valve Morphologically normal tricuspid valve. [id number] tricuspid valve regurgitation. Tricuspid regurgitation velocities suggest a PAP of 44 mmHg. Pulmonic Valve Morphologically normal pulmonic valve. Mild pulmonary valve regurgitation. Pericardium Normal pericardium without effusion. Aorta Normal ascending aorta dimension. Socrates Ge MD (Electronically Signed) 20 Feb 2017 16:30Final Date:
--- NOTE | 2017-02-20 16:36 | Hospitalist Progress Note ---
Assessment and Plan (1) Congestive heart failure Status: Chronic Assessment and plan: Follow-up echocardiogram. Optimize medical management with rate control of atrial fibrillation. Continue Coumadin Current Visit: Yes (2) Atrial fibrillation with RVR Status: Acute Assessment and plan: Increase amiodarone per cardiology. See cardiology consult. Current Visit: Yes (3) Kidney mass Status: Chronic Assessment and plan: Follow-up CT scan and urology consultation. Renal ultrasound noted. Current Visit: Yes (4) Chronic back pain Status: Chronic Current Visit: Yes (5) COPD (chronic obstructive pulmonary disease) Status: Chronic Current Visit: Yes (6) Tobacco abuse Status: Chronic Current Visit: Yes Hospitalist: Subjective Interval history: Patient seen and examined. No acute events overnight. Case discussed with nursing staff. Labs reviewed. Patient remains in atrial fibrillation with a heart rate in the 110s-120s. Cardiology consult reviewed. Agree with additional dose of amiodarone. The patient reports that the renal mass has been there for at least a year and a half. She has undergone a partial workup and [place] in the past. She would like to pursue this further with our urologist locally as she lives in [facility]. CT scan of the abdomen and pelvis from [place] was obtained dated April 2016. Renal ultrasound here performed shows mass versus cyst. A repeat CT has been ordered a neurology consult placed. Exam - Constitutional Vitals: Period Temp Pulse Resp BP Sys/Catalan Pulse Ox Last 24 Hr 97.1 F-98.1 F 109-120 18-20 81-113/52-74 93-99 Exam: Constitutional System: No distress. No tremulousness. Head: Normocephalic, atraumatic. Ears, Nose and Throat System: No pain or tenderness. No epistaxis or discharge Eyes System: Pupils equal, round, and reactive. Extraocular muscles intact. Neck: Supple, without adenopathy, No jugular venous distention. No thyromegaly, neck mass, or prior surgery apparent. Respiratory System: Chest clear to auscultation. Cardiovascular System: Heart with irregularly irregular rhythm, tachycardic. No murmur. GI System: Abdomen soft, nontender. Normo active bowel sounds present. Musculoskeletal System: limbs with no pedal edema. Full distal pulses. Neurological System: No discernable sensory deficit. No aphasia Psychiatric System: Conversation is rational Results - Labs CBC & BMP: 05/08/17 17:34 02/19/17 17:34 Lab Results: I have reviewed the past 24 hour labs - Diagnostic Findings Procedure: CT: report reviewed by me, Ultrasound: report reviewed by me
--- NOTE | 2017-02-20 17:52 | CT Report ---
Referring physician: Vicente Muñoz EXAM: CT abdomen and pelvis without contrast DATE: February 20, 2017 COMPARISON: Renal ultrasound February 20, 2017 REASON: Renal mass TECHNIQUE: Axial images of the abdomen and pelvis were obtained without the use of contrast. Coronal and sagittal reformatted images were also provided. Total DLP is 753.3 mGy*cm. FINDINGS: Lower thorax: The patient is status post sternotomy and mitral valve replacement. The lung bases appear clear. ABDOMEN: Liver: Unremarkable. Gallbladder and bile ducts: The gallbladder is unremarkable. No biliary duct dilatation is present. Pancreas: Unremarkable. Spleen: Unremarkable. Adrenals: Unremarkable. Kidneys and ureters: No hydronephrosis is present, and no renal or ureteral calculi are seen. At the lower pole of the left kidney, there is a 4.1 x 4.0 cm lesion which demonstrates higher density than typically seen for a cyst. It demonstrated internal vascularity on the recent ultrasound and is concerning for a solid renal lesion such as a renal cell carcinoma. There is also a 3.2 x 2.4 cm slightly exophytic lesion at the anterior aspect of the mid left kidney, which also demonstrates higher density than typically seen for a cyst. It has thin wall calcification and had a solid appearance on ultrasound. This could also represent a neoplastic process such as a renal cell carcinoma. PELVIS: Bladder: Unremarkable. Reproductive: The uterus is not identified, suggesting hysterectomy. The ovaries are also not identified. ABDOMEN AND PELVIS: Bowel: There is no evidence of bowel obstruction, and no definite bowel inflammation is seen. Appendix: The appendix is not identified, but there are no secondary signs of appendicitis. Vasculature: The abdominal aorta is normal in size. There is moderate scattered calcified plaque at the arteries. Peritoneum: No free air or ascites is seen. Lymph nodes: There are several nonspecific upper normal size retroperitoneal lymph nodes. A left periaortic lymph node measures 0.7 cm in short axis diameter on image 55. Abdominal/pelvic wall: There is a minimal fat-containing ventral hernia. Bones: There is mild degenerative change at the SI joints and spine. No acute osseous process is identified. IMPRESSION: 1. There are 2 suspicious lesions at the left kidney, one at the lower pole and one at the anterior mid left kidney. They had a solid appearance on the recent ultrasound and could represent a neoplastic process such as renal cell carcinoma. 2. There are several nonspecific upper normal size retroperitoneal lymph nodes. Follow-up is recommended to confirm a benign process, especially considering the findings at the left kidney. The CT exam was performed using one or more of the following dose reduction techniques: Automated exposure control and adjustment of the mA and/or kV according to patient size. PROCEDURE INTERPRETED AT [facility] DEPARTMENT OF RADIOLOGY Final Report Signed by: Dr. Nancy Zepeda
[2017-02-20] MEDS: ATORVASTATIN 40 MG TABLET PO SCH (21:47)
[2017-02-21] MEDS: NITROGLYCERIN 2% OINT 1 INCH/GM PACK TOP SCH ×4 (02:49→18:30)
[2017-02-21 05:26] LABS: Basophils # 0.1 10*3/uL (0.0-0.2); Basophils % 0.8 % (0.0-0.8); Eosinophils # 0.4 10*3/uL (0.0-0.87); Hematocrit 31.4 VOL% (35.7-47.0); Hemoglobin 10.3 GM/DL (12.0-16.0); Immature Granulocytes % 0.4 %; Immature Granulocytes Absolute 0.03 #; Lymphocytes # 2.2 10*3/uL (1.4-4.0); Lymphocytes % 30.2 % (21.3-54.2); Mean Corpuscular HGB Conc 32.8 GM/DL (32-36); Mean Corpuscular Hemoglobin 30 PG (27-34); Mean Corpuscular Volume 90.2 FL (87-102); Mean Platelet Volume 9.9 FL (9.6-12.0); Monocytes # 0.6 10*3/uL (0.11-0.8); Monocytes % 8.4 % (1.7-12.7); Neutrophils # 3.9 10*3/uL (1.4-7.4); Neutrophils % 54.2 % (38.7-73.9); Platelet Count 316 T/CUMM (130-400); Red Blood Count 3.48 MC/CUMM (3.8-5.5); Red Cell Distribution Width 13.7 % (9.3-17.3); White Blood Count 7.3 T/CUMM (4-12)
[2017-02-21 05:38] LABS: INR 2.7
[2017-02-21 05:59] LABS: Calcium 8.5 MG/DL (8.5-10.1); Magnesium 2.3 MG/DL (1.8-2.4); Osmolality,Calculated 285.8 MOS/KG (273-304); Potassium 3.3 MMOL/L (3.5-5.1)
--- NOTE | 2017-02-21 07:19 | Physician Query Form ---
CLICK EDIT DOCUMENT TO SELECT QUERY ANSWER --> OK --> SIGN Dee Israel RN, CCDS Certified Clinical Preassembler [employer] W) [phone] (f) [phone] [email or web address]: Make your selection(s) from the choices in EACH section by typing an "x" and enter comments in the comment section. Please use your independent medical judgment in providing your response. This request does not imply that any particular answer is desired or expected. CLINICAL INDICATORS: (Providers should not edit this section) The medical record indicates that the patient was admitted with AF/RVR, BNP of 448#, "Present: rhonchi (bilateral lung khan)", history of CHF, and the patient is a on Aldactone (PO). Please provide further specificity regarding CHF. ACUITY: ( x) Chronic ( ) Clinically unable to determine TYPE: (x ) Systolic (HFrEF - heart failure with reduced systolic function/EF) ( ) Diastolic (HFpEF - heart failure with preserved systolic function/EF) ( ) Combined Systolic/Diastolic ( ) Other, please specify: ( ) Clinically unable to determine ( ) The patient does NOT have CHF COMMENTS: Use of terms such as suspected, likely, or probable (associated with a specific diagnosis that is being evaluated, monitored, or treated as if it exists) are acceptable and can be restated in the discharge summary if not ruled out. MTDD
[2017-02-21] MEDS ORDERED: POTASSIUM CHLORIDE 20 MEQ TABLET PO ONE (07:46)
--- NOTE | 2017-02-21 07:57 | Urology Consultation ---
History of Present Illness - Data of Consult Consult date: 02/21/17 - Consult Narrative History of present illness: Ms. Khan is a 57 year old female This 57-year-old white female is seen in consultation because of a history of a renal mass. The patient says that this was diagnosed a couple years ago and she has been followed by urologist in [place]. I am not sure when she had her last CAT scan but she says the doctor there has done a renal ultrasound and apparently there may be some increase in the size of these. She has creatinine of 1.1 no significant hematuria on urinalysis and she has had a CT scan without dye that shows 2 lesions in the left kidney one 3 cm and one 4 cm. I am going to try to get the records from her doctor [place] to see for evaluation she has had in the past and if there has been any increase in size and then we will plan on elective treatment at a later date. CC: Vicente Muñoz MD - Home Medications and Allergies Home Medications: Home Medications Medication Instructions Recorded Confirmed Type ALPRAZolam [Xanax] 0.5 mg PO QAM 02/19/17 02/19/17 History ALPRAZolam [Xanax] 2 mg PO BEDTIME 02/19/17 02/19/17 History Albuterol Inhaler [Proventil 2 puff INH Q6H PRN 02/19/17 02/19/17 History Inhaler] Amiodarone Tab [Cordarone Tab] 200 mg PO DAILY 02/19/17 02/19/17 History Atorvastatin [Lipitor] 40 mg PO BEDTIME 02/19/17 02/19/17 History Docusate Sodium 100 mg PO DAILY 02/19/17 02/19/17 History Fluticasone/Salmeterol 250-50 1 puff INH BID 02/19/17 02/19/17 History [Advair 250-50] Metoprolol Tartrate Tab [Lopressor 25 mg PO BID 02/19/17 02/19/17 History Tab] Oxymorphone HCl [Opana ER] 30 mg PO BID 02/19/17 02/19/17 History Potassium Chloride 8 meq PO DAILY 02/19/17 02/19/17 History Spironolactone 25 mg PO DAILY 02/19/17 02/19/17 History Tiotropium Inhalation [Spiriva 18 mcg INH DAILY 02/19/17 02/19/17 History Handihaler] Torsemide 40 mg PO BID 02/19/17 02/19/17 History Venlafaxine [Effexor] 75 mg PO DAILY 02/19/17 02/19/17 History Warfarin [Coumadin] 7.5 mg PO DAILY 02/19/17 02/19/17 History Allergies/Adverse Reactions: Allergies Allergy/AdvReac Type Severity Reaction Status Date / Time codeine Allergy Severe RASH Verified 02/19/17 17:03 iodine Allergy Severe Redness of Verified 02/19/17 17:03 Skin meperidine [From Demerol] Allergy Severe Agitated Verified 02/19/17 17:03 povidone-iodine Allergy Severe Redness of Verified 02/19/17 17:03 [From Betadine] Skin soap [From Betadine] Allergy Severe Redness of Verified 02/19/17 17:03 Skin Sulfa (Sulfonamide Allergy Severe Difficulty Verified 02/19/17 17:03 Antibiotics) Breathing Exam - Constitutional Vitals: Period Temp Pulse Resp BP Sys/Catalan Pulse Ox Last 24 Hr 97 F-98.3 F 66-116 16-20 75-116/40-82 91-99 Results - Labs CBC & BMP: 02/21/17 04:46 02/21/17 04:46
[2017-02-21] MEDS: IPRATROPIUM 500 MCG/2.5 ML NEB RESP TX SCH ×4 (08:09→19:20)
[2017-02-21] MEDS: MORPHINE 2 MG/1 ML SYRINGE IV PRN ×3 (08:55→21:11)
[2017-02-21] MEDS: ASCORBIC ACID 500 MG TABLET PO SCH ×2 (08:56→21:10)
[2017-02-21] MEDS: SPIRONOLACTONE 25 MG TABLET PO SCH (08:56)
[2017-02-21] MEDS: VENLAFAXINE 75 MG TABLET PO SCH (08:57)
[2017-02-21] MEDS: TORSEMIDE 20 MG TABLET PO SCH ×2 (08:57→21:10)
[2017-02-21] MEDS: ALPRAZolam 0.5 MG TABLET PO SCH ×2 (08:57→21:10)
[2017-02-21] MEDS: POTASSIUM CHLORIDE 8 MEQ CAPSULE PO SCH (08:57)
[2017-02-21] MEDS: DOCUSATE SODIUM 100 MG CAPSULE PO SCH (08:57)
[2017-02-21] MEDS: AMIODARONE 200 MG TABLET PO SCH ×2 (08:57→21:10)
[2017-02-21] MEDS: METOPROLOL TARTRATE 25 MG TABLET PO SCH ×2 (08:58→21:11)
[2017-02-21] MEDS: FLUTICASONE/SALMETEROL 250-50 DISKUS 14 DOSE INH SCH ×2 (09:52→21:09)
[2017-02-21] MEDS: ONDANSETRON 4 MG/2 ML VIAL IV PRN ×3 (11:18→21:11)
--- NOTE | 2017-02-21 14:31 | Cardiology Progress Note ---
<Marti Barry - Last Filed: 02/21/17 14:27> Assessment and Plan (1) Atrial fibrillation with RVR Status: Acute Assessment and plan: Paroxysmal atrial fibrillation. Yesterday, she was given Amiodarone bolus and maintenance dose was increased to 400 mg BID. However, patient failed to convert, remains in atrial fib/flutter with heart rates ranging from 100-110. After discussing with Dr. Ge, patient will be scheduled for cardioversion tomorrow morning. Since she is adequately anticoagulated she will be at low risk for stroke. Risks and benefits were reviewed with the patient. She is agreeable to proceed with this in morning. NPO after midnight. -Continue beta-blockade, Amiodarone and Coumadin, INR today therapeutic at 2.7. -Daily INR. Further plan and addendum to follow per Dr. Ge. Current Visit: Yes (2) Kidney mass Status: Chronic Assessment and plan: Patient underwent renal ultrasound this morning which revealed a 21 mm and 41 mm left renal mass. Urology has been consulted and workup is underway. Current Visit: Yes (3) COPD (chronic obstructive pulmonary disease) Status: Chronic Assessment and plan: This is clinically stable. Continue current plan of care. Defer management to hospital medicine. Current Visit: Yes (4) Tobacco abuse Status: Chronic Assessment and plan: Smoking cessation encouraged. Current Visit: Yes (5) Chronic back pain Status: Chronic Current Visit: Yes (6) Hypokalemia Status: Acute Assessment and plan: Potassium replacement protocol ordered. Daily BMP. Current Visit: Yes Cardiology - PN: Subj Interval history: Professor Of Food Biochemistry: Dr. Bee at [facility] Summary: Ms. Khan is a 57 year old female who is routinely followed by Dr. Bee at [facility]. Patient was transferred from [facility] for further evaluation of chest discomfort and atrial fibrillation with rapid ventricular response. Patient has past medical history of hyperlipidemia, current everyday smoker, paroxysmal atrial fibrillation, [place] mechanical mitral valve (on chronic anticoagulation with Coumadin), COPD, CHF and chronic back pain. 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 At that time, her ejection fraction was noted to be 70%. She reports that she last saw Dr. Bee approximately 3- 4 months ago. She presented to [facility] with atrial fibrillation with rapid ventricular response. She was given a bolus of amiodarone IV and her maintenance dose of amiodarone was increased to 400 mg twice daily. However, patient failed to convert, remains in atrial fib/flutter with heart rates ranging from 100-110. She continues to complain of weakness, palpitations and mild chest discomfort. After discussing with Dr. Ge, patient will be scheduled for cardioversion tomorrow morning. Since she is adequately anticoagulated she will be at low risk for stroke. Risks and benefits were reviewed with the patient. She is agreeable to proceed with this in morning. NPO after midnight. Potassium is noted to be 3.4. Potassium requested part because been ordered. Vital signs are stable. Echocardiogram was performed yesterday which revealed normal sized LV with mild concentric left ventricular hypertrophy with ejection fraction of greater than 55%. Right left atrium are mild to moderately dilated. Mechanical prosthetic mitral valve appears to be functioning normally. Mild to moderate tricuspid regurgitation with mild pulmonic insufficiency was also noted. Further plan and addendum to follow per Dr. Ge. Exam (Progress Note) - Constitutional Vitals: Period Temp Pulse Resp BP Sys/Catalan Pulse Ox Last 24 Hr 96.8 F-98.3 F 66-121 16-21 75-121/40-82 91-98 Exam: General: Present: Appears Well, No Apparent Distress HEENT: Present: Normocephaly Neck: Present: Supple Neck, Midline Trachea, No JVD/HJR, No Masses, No Bruit Cardiac: Present: Irregularly Regular, Other (mechanical Mitral valve sounds appreciated ) Lungs: Present: Normal Exam, Clear Ascult./Percussion, Normal Breath Sounds, No Wheeze, Rales, Rhonchi Abdomen: Present: Soft, Active Bowel Sounds, Non-Tender. Absent: Firm, Distended Skin: Present: Clear. Absent: Rash, Suspicious Lesions, Ulceration Extremities: Present: Normal Gait, No Clubbing, No Cyanosis, No edema, Normal Upper Extr. Pulses, Normal Lower Extr. Pulses, Result/EKG - Labs CBC & BMP: 02/21/17 04:46 02/21/17 04:46 Lab Results: I have reviewed the past 24 hour labs Labs: Laboratory Results - last 24 hr 02/21/17 02/21/17 02/21/17 04:46 04:46 04:46 WBC 7.3 RBC 3.48 L Hgb 10.3 L Hct 31.4 L MCV 90.2 MCH 30 MCHC 32.8 RDW 13.7 Plt Count 316 MPV 9.9 Neut % (Auto) 54.2 Lymph % (Auto) 30.2 Chester % (Auto) 8.4 Eos % (Auto) 6.0 Baso % (Auto) 0.8 Neut # (Auto) 3.9 Lymph # (Auto) 2.2 [place] # (Auto) 0.6 Eos # (Auto) 0.4 Baso # (Auto) 0.1 Immature Gran % 0.4 Nucleated RBC % 0.0 Immature Gran # 0.03 Nucleated RBCs # 0.00 INR 2.7 PT Patient/Control Mix 31.0 Sodium 144 Potassium 3.3 L Chloride 106 Carbon Dioxide 31 Anion Gap 10.3 BUN 13 Creatinine 1.10 H GFR Calculation 64 BUN/Creatinine Ratio 11.00 Glucose 94 Calculated Osmolality 285.8 Calcium 8.5 Magnesium 2.3 <Socrates Ge - Last Filed: 02/21/17 20:30> Cardiology - PN: Subj Interval history: Patient personally interviewed and examined and chart reviewed. Discussed his case with Marti Barry PUBLIC RELATIONS CONSULTANT. I agree with the assessment and evaluation and plan. In addition a summation patient persisted in atrial fib flutter. Are plans will be to do electrocardioversion in the morning. She's been adequately anticoagulated. I discussed this with the patient reviewing indications the procedure as well as how would be carried out and the risk. Risks include that of stroke or malignant rhythm causing . She voices understanding and agrees to proceed. The plan on doing this in the morning. Exam (Progress Note) - Constitutional Vitals: Period Temp Pulse Resp BP Sys/Catalan Pulse Ox Last 24 Hr 96.8 F-98.1 F 66-121 16-21 75-121/40-81 91-98 Result/EKG - Labs CBC & BMP: 02/21/17 04:46 02/21/17 04:46 Labs: Laboratory Results - last 24 hr 02/21/17 02/21/17 02/21/17 04:46 04:46 04:46 WBC 7.3 RBC 3.48 L Hgb 10.3 L Hct 31.4 L MCV 90.2 MCH 30 MCHC 32.8 RDW 13.7 Plt Count 316 MPV 9.9 Neut % (Auto) 54.2 Lymph % (Auto) 30.2 Chester % (Auto) 8.4 Eos % (Auto) 6.0 Baso % (Auto) 0.8 Neut # (Auto) 3.9 Lymph # (Auto) 2.2 [place] # (Auto) 0.6 Eos # (Auto) 0.4 Baso # (Auto) 0.1 Immature Gran % 0.4 Nucleated RBC % 0.0 Immature Gran # 0.03 Nucleated RBCs # 0.00 INR 2.7 PT Patient/Control Mix 31.0 Sodium 144 Potassium 3.3 L Chloride 106 Carbon Dioxide 31 Anion Gap 10.3 BUN 13 Creatinine 1.10 H GFR Calculation 64 BUN/Creatinine Ratio 11.00 Glucose 94 Calculated Osmolality 285.8 Calcium 8.5 Magnesium 2.3
[2017-02-21] MEDS ORDERED: POTASSIUM CHLORIDE RIDER 10 MEQ in PREMIX 1 EACH IV PRN (15:05)
[2017-02-21] MEDS: WARFARIN 7.5 MG TABLET PO SCH (18:22)
--- NOTE | 2017-02-21 18:34 | Hospitalist Progress Note ---
Assessment and Plan (1) Congestive heart failure Status: Chronic Assessment and plan: Optimize medical management with rate control of atrial fibrillation. Continue Coumadin. Cardioversion planned for tomorrow morning Ejection fraction 55% on echo. Mitral valvular prosthesis functioning properly. No evidence of significant diastolic dysfunction. Current Visit: Yes Qualifiers: Congestive heart failure type: unspecified congestive heart failure type Congestive heart failure chronicity: chronic Qualified Code(s): I50.9 - Heart failure, unspecified (2) Atrial fibrillation with RVR Status: Acute Assessment and plan: Increase amiodarone per cardiology. See cardiology consult. Cardioversion in a.m. Current Visit: Yes (3) Kidney mass Status: Chronic Assessment and plan: Follow-up CT scan and urology consultation. Renal ultrasound noted. Current Visit: Yes (4) Chronic back pain Status: Chronic Current Visit: Yes (5) COPD (chronic obstructive pulmonary disease) Status: Chronic Current Visit: Yes (6) Tobacco abuse Status: Chronic Current Visit: Yes Hospitalist: Subjective Interval history: Patient seen and examined. No acute events overnight. Case discussed with nursing staff. Labs reviewed. Chart reviewed and urology consult noted. Case discussed with the patient and her family at the bedside. She is not a candidate for biopsy at this time due to her anticoagulation. She is scheduled for cardioversion tomorrow which will necessitate continued anticoagulation for a period of 6-8 weeks. She will need outpatient follow-up with urology for possible biopsy or further diagnostic testing of her left renal mass. She continues to have A. fib/flutter with RVR. She has had cardioversion in the past last time about 2 years ago. Exam - Constitutional Vitals: Period Temp Pulse Resp BP Sys/Catalan Pulse Ox Last 24 Hr 96.8 F-98.3 F 66-121 16-21 75-121/40-82 91-98 Exam: Constitutional System: No distress. No tremulousness. Head: Normocephalic, atraumatic. Ears, Nose and Throat System: No pain or tenderness. No epistaxis or discharge Eyes System: Pupils equal, round, and reactive. Extraocular muscles intact. Neck: Supple, without adenopathy, No jugular venous distention. Respiratory System: Chest clear to auscultation. Cardiovascular System: Heart with irregularly irregular rhythm, tachycardic. No murmur. GI System: Abdomen soft, nontender. Normo active bowel sounds present. Musculoskeletal System: limbs with no pedal edema. Full distal pulses. Neurological System: No discernable sensory deficit. No aphasia Psychiatric System: Conversation is rational Results - Labs CBC & BMP: 02/21/17 04:46 02/21/17 04:46 Lab Results: I have reviewed the past 24 hour labs
[2017-02-21] MEDS: ATORVASTATIN 40 MG TABLET PO SCH (21:10)
[2017-02-22] MEDS: NITROGLYCERIN 2% OINT 1 INCH/GM PACK TOP SCH ×4 (01:11→17:23)
[2017-02-22 06:12] LABS: Basophils # 0.1 10*3/uL (0.0-0.2); Basophils % 0.5 % (0.0-0.8); Eosinophils # 0.4 10*3/uL (0.0-0.87); Eosinophils % 4.5 % (0.00-10.9); Hematocrit 32.7 VOL% (35.7-47.0); Hemoglobin 10.8 GM/DL (12.0-16.0); Immature Granulocytes % 0.4 %; Immature Granulocytes Absolute 0.04 #; Lymphocytes # 2.6 10*3/uL (1.4-4.0); Lymphocytes % 27.7 % (21.3-54.2); Mean Corpuscular Hemoglobin 30 PG (27-34); Mean Corpuscular Volume 91.3 FL (87-102); Mean Platelet Volume 9.9 FL (9.6-12.0); Monocytes # 0.7 10*3/uL (0.11-0.8); Monocytes % 6.9 % (1.7-12.7); Neutrophils # 5.7 10*3/uL (1.4-7.4); Platelet Count 357 T/CUMM (130-400); Red Blood Count 3.58 MC/CUMM (3.8-5.5); Red Cell Distribution Width 13.7 % (9.3-17.3); White Blood Count 9.5 T/CUMM (4-12)
[2017-02-22 06:20] LABS: INR 1.7; PT Patient Result 18.5 SECS
[2017-02-22 06:43] LABS: Magnesium 2.3 MG/DL (1.8-2.4); Potassium 3.6 MMOL/L (3.5-5.1)
--- NOTE | 2017-02-22 06:47 | History and Physical Update ---
History and Physical Update - History and Physical H&P was reviewed, the patient examined and there: are no changes in the patients condition since last H&P was completed. - Dictation Physical: refer to scanned H&P, refer to H&P completed by admitting physician - Physical Exam Mental Status: alert and oriented Heart: regular rate and rhythm Lung: clear to auscultation Abdomen: within normal limits Vitals: within normal limits History and Physical Changes: None. The patient continues to be in atrial fib flutter.
--- NOTE | 2017-02-22 06:55 | Cardiology Progress Note ---
Assessment and Plan (1) History of mitral valve replacement with mechanical valve Status: Chronic Assessment and plan: This is clinically and echocardiographically stable and functioning appropriate. This is the reason for which she is on warfarin. Current Visit: Yes (2) Atrial fibrillation with RVR Status: Acute Assessment and plan: This is one reason for which she has been on warfarin. 4. She is in atrial fib flutter is continued even on amiodarone. She is for cardioversion this morning. This was again discussed with the patient and reviewed in detail. Current Visit: Yes (3) Kidney mass Status: Chronic Assessment and plan: This apparently has been evaluated previously and Dr. Aguayo as evaluating now. Current Visit: Yes (4) Chronic back pain Status: Chronic Assessment and plan: On chronic medical therapy. Current Visit: Yes (5) COPD (chronic obstructive pulmonary disease) Status: Chronic Assessment and plan: This is stable at this time. Current Visit: Yes (6) Tobacco abuse Status: Chronic Assessment and plan: She needs to stop smoking and this is been discussed with the patient. Current Visit: Yes (7) Hypokalemia Status: Acute Assessment and plan: Potassium 3.6 this morning. Current Visit: Yes Cardiology - PN: Subj Interval history: Patient this morning has no specific complaints. She continues to be an atrial khan/flutter with fairly well controlled ventricular response. She has received her bolus of amiodarone and his increased oral dosing. Her INR this morning was 1.7 but she states she is not aware that any blood was drawn this morning. Her other lab work is not back as well as does raise the issue whether or not this is overall patient's INR. She is on warfarin for her mechanical mitral valve prosthesis. Her blood pressures a little low this morning. Her heart rate still is running 100-110. She's not having any respiratory complaints but has had a history of chronic lung disease previously. Dr. Aguayo as evaluating a renal mass but apparently the patient has been seen previously by urologist and mobile for something similar to this. Other issues include COPD and tobacco abuse as well as chronic back pain that are stable. She has hypokalemia on admission placed on replacement protocol. Exam (Progress Note) - Constitutional Vitals: Period Temp Pulse Resp BP Sys/Catalan Pulse Ox Last 24 Hr 96.8 F-98.1 F 75-122 17-21 75-121/40-81 91-99 Exam: Gen. appearance: Alert cooperative no distress. HEENT: Atraumatic and normocephalic. Neck: Trachea is midline is supple. No bruits. Lungs: Coarse breath sounds but no rales rhonchi or wheezes. Cardiovascular: Fairly regular rhythm this morning but little tachycardic. Mechanical valve sounds are noted. Abdomen: Soft nontender bowel sounds present. Extremities: No edema or cyanosis. Neurologic: Patient alert cooperative without deficits. Psychiatric: Contour function is grossly intact. Skin: Warm. Result/EKG - Labs CBC & BMP: 02/22/17 04:32 02/22/17 04:32 Lab Results: I have reviewed the past 24 hour labs Labs: Laboratory Results - last 24 hr 02/22/17 02/22/17 02/22/17 04:32 04:32 04:32 WBC 9.5 D RBC 3.58 L Hgb 10.8 L Hct 32.7 L MCV 91.3 MCH 30 MCHC 33.0 RDW 13.7 Plt Count 357 MPV 9.9 Neut % (Auto) 60.0 Lymph % (Auto) 27.7 [place] % (Auto) 6.9 Eos % (Auto) 4.5 Baso % (Auto) 0.5 Neut # (Auto) 5.7 Lymph # (Auto) 2.6 [place] # (Auto) 0.7 Eos # (Auto) 0.4 Baso # (Auto) 0.1 Immature Gran % 0.4 Nucleated RBC % 0.0 Immature Gran # 0.04 Nucleated RBCs # 0.00 INR 1.7 PT Patient/Control Mix 18.5 D Sodium 143 Potassium 3.6 Chloride 105 Carbon Dioxide 31 Anion Gap 10.6 BUN 20 H Creatinine 1.40 H GFR Calculation 47 BUN/Creatinine Ratio 14.00 Glucose 89 Calculated Osmolality 286.0 Calcium 9.0 Magnesium 2.3 - Impressions Impressions: Telemetry with atrial field/flutter with heart rate around the 104.
--- NOTE | 2017-02-22 07:36 | Urology Progress Note ---
Urology - PN: Subj Interval history: I was able to obtain the patient's old records. She is a lowe patient is and is seeing Dr. Gomes last year. She had a CT scan with dye and there was no contrast enhancement in the left renal masses. She was also seen by Dr. Rivera a urologist in [place] and had a complete workup for hematuria layer. She had a CT scan with dye renal ultrasound cystoscopy and urine cytology in the left renal masses were felt to be hyperdense cyst. The remainder of her hematuria workup was negative. Exam - Constitutional Vitals: Period Temp Pulse Resp BP Sys/Catalan Pulse Ox Last 24 Hr 97.1 F-98.1 F 75-122 17-21 83-116/53-76 91-99 Results - Labs CBC & BMP: 02/22/17 04:32 02/22/17 04:32
--- NOTE | 2017-02-22 07:43 | Cardiology Operative Report ---
Date of Procedure:: 02/22/17 Pre-op diagnosis: atrial fibrillation/flutter with RVR Post-op diagnosis: same Procedure: Procedure: Synchronized electrocardioversion. Indications: Atrial fibrillation/flutter with RVR Results: Successful cardioversion to sinus rhythm. Sedation/anesthesia: MAC per anesthesia. Cardioversion shocks: 1 synchronized cardioversion attempted 200 J Complications: None immediate Description of procedure: After informed consent the patient was connected to the monitor equipment for cardioversion. Anesthesia then carried out sedation. Please see their notes/report for details regarding sedation. Once the patient was appropriately sedated they underwent electrocardioversion with one electrocardioversion attempt synchronized at 200 Joules. Patient says for converted to normal sinus rhythm. Patient had no immediate complication or dysrhythmias. Implants: None Anesthesia: MAC Surgeon / Physician: Socrates Ge Estimated blood loss: none Specimens: none sent Condition: stable Disposition: floor
--- NOTE | 2017-02-22 08:06 | EKG Report ---
Stationary ECG Study [facility] Test Date: 02/22/2017 7:47:31 AM Pat Name: EFRAIN COTO Department: Room: 275 Gender: F [employer]: : 1960 Requested by: Socrates Loomis Order Number: [id number] Reading MD: LUIS MIGUEL DODD Intervals [place] Rate: 67 P: 37 ME: 194 QRS: 63 QRSD: 98 T: 74 QT: 456 QTc: 471 Interpretive Statements SINUS RHYTHM At 67 bpm Mild QTC prolongation Electronically Signed On 02-26-17 15:56:29 CDT by LUIS MIGUEL DODD [email or web address]
[2017-02-22] MEDS: IPRATROPIUM 500 MCG/2.5 ML NEB RESP TX SCH ×4 (08:09→20:12)
[2017-02-22 08:14] LABS: INR 1.7; PT Patient Result 18.7 SECS
--- NOTE | 2017-02-22 08:21 | Anesthesia Post-Op ---
Anesthesia Post OP - Post Ansesthetic Evaluation Patient seen in post op: Yes Resp: within normal limits CV: within normal limits Mental: within normal limits Temp: within normal limits Nlcn-Vd-Ldapoaobe: within normal limits Nausea and Vomiting: within normal limits Pain: within normal limits
[2017-02-22] MEDS: POTASSIUM CHLORIDE 8 MEQ CAPSULE PO SCH (09:10)
[2017-02-22] MEDS: ALPRAZolam 0.5 MG TABLET PO SCH ×2 (09:10→20:11)
[2017-02-22] MEDS: DOCUSATE SODIUM 100 MG CAPSULE PO SCH (09:10)
[2017-02-22] MEDS: VENLAFAXINE 75 MG TABLET PO SCH (09:10)
[2017-02-22] MEDS: ASCORBIC ACID 500 MG TABLET PO SCH ×2 (09:10→20:11)
[2017-02-22] MEDS: AMIODARONE 200 MG TABLET PO SCH ×2 (09:10→20:12)
[2017-02-22] MEDS: FLUTICASONE/SALMETEROL 250-50 DISKUS 14 DOSE INH SCH ×2 (09:10→20:12)
[2017-02-22] MEDS: SPIRONOLACTONE 25 MG TABLET PO SCH (09:12)
[2017-02-22] MEDS: TORSEMIDE 20 MG TABLET PO SCH ×2 (09:12→20:12)
[2017-02-22] MEDS: METOPROLOL TARTRATE 25 MG TABLET PO SCH ×2 (09:12→20:12)
[2017-02-22] MEDS: ONDANSETRON 4 MG/2 ML VIAL IV PRN ×2 (11:08→20:11)
[2017-02-22] MEDS: MORPHINE 2 MG/1 ML SYRINGE IV PRN ×2 (11:09→20:12)
--- NOTE | 2017-02-22 16:47 | Hospitalist Progress Note ---
Assessment and Plan (1) Congestive heart failure Status: Chronic Assessment and plan: Optimize medical management with rate control of atrial fibrillation. Continue Coumadin. Cardioversion done this morning without complication. Ejection fraction 55% on echo. Mitral valvular prosthesis functioning properly. No evidence of significant diastolic dysfunction. Current Visit: Yes Qualifiers: Congestive heart failure type: unspecified congestive heart failure type Congestive heart failure chronicity: chronic Qualified Code(s): I50.9 - Heart failure, unspecified (2) Atrial fibrillation with RVR Status: Resolved Assessment and plan: Status post cardioversion in a.m. Continue anticoagulation for atrial fibrillation status post conversion and mitral valve surgery. Current Visit: Yes (3) Kidney mass Status: Chronic Assessment and plan: Patient has undergone extensive workup in the past. Urology note reviewed. Evidence of complex cyst on previous CT with IV contrast. Patient will need outpatient follow-up with urology. Current Visit: Yes (4) Chronic back pain Status: Chronic Current Visit: Yes (5) COPD (chronic obstructive pulmonary disease) Status: Chronic Current Visit: Yes (6) Tobacco abuse Status: Chronic Current Visit: Yes Hospitalist: Subjective Interval history: Patient seen and examined. Chart reviewed. Underwent cardioversion today without complication. Looks and feels well. Plan for discharge home in a.m. Case discussed with Dr. Ge. Urology notes reviewed. Patient has had a CT scan with IV contrast suggestive of cystic changes instead of mass. She will need to follow-up as an outpatient with urology either Dr. Gomes or Dr. Aaron. Plan to continue anticoagulation status post cardioversion. Exam - Constitutional Vitals: Period Temp Pulse Resp BP Sys/Catalan Pulse Ox Last 24 Hr 97.1 F-97.9 F 76-122 17-21 83-106/53-76 95-100 Exam: Constitutional System: No distress. No tremulousness. Head: Normocephalic, atraumatic. Ears, Nose and Throat System: No pain or tenderness. No epistaxis or discharge Eyes System: Pupils equal, round, and reactive. Extraocular muscles intact. Neck: Supple, without adenopathy, No jugular venous distention. Respiratory System: Chest clear to auscultation. Cardiovascular System: Heart with regular rhythm. No murmur. GI System: Abdomen soft, nontender. Normo active bowel sounds present. Musculoskeletal System: limbs with no pedal edema. Full distal pulses. Neurological System: No discernable sensory deficit. No aphasia Psychiatric System: Conversation is rational Results - Labs CBC & BMP: 02/22/17 04:32 02/22/17 04:32 Lab Results: I have reviewed the past 24 hour labs
[2017-02-22] MEDS: WARFARIN 7.5 MG TABLET PO SCH (17:25)
[2017-02-22] MEDS: ATORVASTATIN 40 MG TABLET PO SCH (20:11)
[2017-02-23] MEDS: NITROGLYCERIN 2% OINT 1 INCH/GM PACK TOP SCH ×2 (00:13→05:39)
[2017-02-23 05:05] LABS: Basophils % 0.4 % (0.0-0.8); Eosinophils # 0.4 10*3/uL (0.0-0.87); Hematocrit 29.3 VOL% (35.7-47.0); Hemoglobin 9.6 GM/DL (12.0-16.0); Immature Granulocytes % 0.3 %; Immature Granulocytes Absolute 0.03 #; Lymphocytes # 2.2 10*3/uL (1.4-4.0); Lymphocytes % 24.3 % (21.3-54.2); Mean Corpuscular HGB Conc 32.8 GM/DL (32-36); Mean Corpuscular Hemoglobin 30 PG (27-34); Mean Corpuscular Volume 91.8 FL (87-102); Mean Platelet Volume 10.1 FL (9.6-12.0); Monocytes # 0.6 10*3/uL (0.11-0.8); Neutrophils # 5.8 10*3/uL (1.4-7.4); Platelet Count 304 T/CUMM (130-400); Red Blood Count 3.19 MC/CUMM (3.8-5.5); Red Cell Distribution Width 13.9 % (9.3-17.3); White Blood Count 9.1 T/CUMM (4-12)
[2017-02-23 05:34] LABS: Calcium 8.6 MG/DL (8.5-10.1); Magnesium 2.2 MG/DL (1.8-2.4); Osmolality,Calculated 286.8 MOS/KG (273-304); Potassium 3.5 MMOL/L (3.5-5.1)
--- NOTE | 2017-02-23 07:42 | Urology Progress Note ---
Urology - PN: Subj Interval history: The patient has 2 lesions in the left kidney that were read as solid masses on ultrasound here but she has had a previous evaluation with CAT scans with dye and ultrasounds at [facility] and in [place] that indicate these are hyperdense cyst. I discussed the ultrasound findings with Dr. Schafer who recommended an MRI but the patient cannot have this because of her heart valve. The urologist in [place] that worked her up for hematuria has recommended a follow-up CT with dye with renal mass protocol and I will let her follow-up with him or Dr. Gomes. I will see her again as needed Exam - Constitutional Vitals: Period Temp Pulse Resp BP Sys/Catalan Pulse Ox Last 24 Hr 97.1 F-97.9 F 71-86 17-20 86-122/52-66 93-100 Results - Labs CBC & BMP: 02/23/17 04:01 02/23/17 04:01
[2017-02-23] MEDS: IPRATROPIUM 500 MCG/2.5 ML NEB RESP TX SCH (07:49)
[2017-02-23] MEDS: TORSEMIDE 20 MG TABLET PO SCH (09:05)
[2017-02-23] MEDS: METOPROLOL TARTRATE 25 MG TABLET PO SCH (09:05)
[2017-02-23] MEDS: POTASSIUM CHLORIDE 8 MEQ CAPSULE PO SCH (09:05)
[2017-02-23] MEDS: AMIODARONE 200 MG TABLET PO SCH (09:05)
[2017-02-23] MEDS: VENLAFAXINE 75 MG TABLET PO SCH (09:05)
[2017-02-23] MEDS: SPIRONOLACTONE 25 MG TABLET PO SCH (09:05)
[2017-02-23] MEDS: DOCUSATE SODIUM 100 MG CAPSULE PO SCH (09:05)
[2017-02-23] MEDS: ALPRAZolam 0.5 MG TABLET PO SCH (09:05)
[2017-02-23] MEDS: ASCORBIC ACID 500 MG TABLET PO SCH (09:05)
[2017-02-23] MEDS: FLUTICASONE/SALMETEROL 250-50 DISKUS 14 DOSE INH SCH (09:06)
--- NOTE | 2017-02-23 09:06 | Cardiology Progress Note ---
Assessment and Plan (1) History of mitral valve replacement with mechanical valve Status: Chronic Assessment and plan: This is stable she will need to continue her warfarin. Current Visit: Yes (2) Atrial fibrillation with RVR Status: Resolved Assessment and plan: Patient's postelective cardioversion remains in sinus rhythm. Current Visit: Yes (3) Kidney mass Status: Chronic Assessment and plan: This apparently has been evaluated previously and Dr. Aguayo as evaluating now. Current Visit: Yes (4) Chronic back pain Status: Chronic Assessment and plan: On chronic medical therapy. She apparently has been followed in the pain clinic previously. Current Visit: Yes (5) COPD (chronic obstructive pulmonary disease) Status: Chronic Assessment and plan: This is stable at this time. Current Visit: Yes (6) Tobacco abuse Status: Chronic Assessment and plan: She needs to stop smoking and this is been discussed with the patient. She really is not motivated to stop. Current Visit: Yes (7) Hypokalemia Status: Acute Assessment and plan: Potassium 3.5 this morning. Current Visit: Yes Cardiology - PN: Subj Interval history: Patient is doing well this morning. She has no specific complaints. Her rhythm remains sinus rhythm throughout the night. She denies any chest pain shortness of breath or other issues. Telemetry is continue to reveal sinus rhythm without any dysrhythmias. Her lab work is unremarkable including CBC. Her H&H is dropped some but I am not sure why this would be. We will leave this to the primary service. Her INR is not back yet. Chemistries are stable. Creatinine is 1.3. From our standpoint the patient can be discharged to follow-up with her primary physician and her regular solar tech who is Dr. Bee at [place]. She should have an appointment within the next 2-4 weeks. Exam (Progress Note) - Constitutional Vitals: Period Temp Pulse Resp BP Sys/Catalan Pulse Ox Last 24 Hr 97.1 F-97.9 F 71-86 17-20 89-122/52-66 93-100 Exam: Gen. appearance: Alert cooperative no distress. HEENT: Atraumatic and normocephalic. Neck: Trachea is midline is supple. No bruits. Lungs: Coarse breath sounds but no rales rhonchi or wheezes. Cardiovascular: Regular rate and rhythm. Mechanical valve sounds are noted. Abdomen: Soft nontender bowel sounds present. Extremities: No edema or cyanosis. Neurologic: Patient alert cooperative without deficits. Psychiatric: Contour function is grossly intact. Skin: Warm. Result/EKG - Labs CBC & BMP: 02/23/17 04:01 02/23/17 04:01 Lab Results: I have reviewed the past 24 hour labs Labs: Laboratory Results - last 24 hr 02/23/17 02/23/17 04:01 04:01 WBC 9.1 RBC 3.19 L Hgb 9.6 L Hct 29.3 L MCV 91.8 MCH 30 MCHC 32.8 RDW 13.9 Plt Count 304 MPV 10.1 Neut % (Auto) 64.0 Lymph % (Auto) 24.3 [place] % (Auto) 7.0 Eos % (Auto) 4.0 Baso % (Auto) 0.4 Neut # (Auto) 5.8 Lymph # (Auto) 2.2 [place] # (Auto) 0.6 Eos # (Auto) 0.4 Baso # (Auto) 0.0 Immature Gran % 0.3 Nucleated RBC % 0.0 Immature Gran # 0.03 Nucleated RBCs # 0.00 Sodium 144 Potassium 3.5 Chloride 107 Carbon Dioxide 29 Anion Gap 11.5 BUN 17 Creatinine 1.30 H GFR Calculation 51 BUN/Creatinine Ratio 13.00 Glucose 83 Calculated Osmolality 286.8 Calcium 8.6 Magnesium 2.2 - Impressions Impressions: Telemetry with normal sinus rhythm without demonstrable dysrhythmias.
--- NOTE | 2017-02-23 10:14 | Discharge Summary ---
Hospital Course - Hospital Course Hospital Course: 57-year-old white female with history of A. fib and mitral valve replacement on chronic Coumadin, chronic back pain, kidney mass, hypertension admitted by hospital medicine with Debby. linda with RVR. Dr. Ge from cardiology was consulted. She was started on amiodarone and did not convert on her own. She underwent cardioversion on 02/22/[address] Ge. She is now in normal sinus rhythm and chest pain is resolved. Dr. Aguayo from urology was also consulted to evaluate the left renal mass. Renal ultrasound shows solid masses but CT scans are showing hyperdense cysts. patient has seen Dr. Gomes at [facility] and a urologist in [place]. She can follow-up with either one of them. Smoking cessation was also discussed with this patient she is not motivated to stop at this time. Patient is being discharged home with follow-up with Dr. Bee her bioprocess development engineer at [facility] in 2 weeks. Her amiodarone for home will be 400 mg p.o. daily. Patient's care was coordinated with Dr. Ge, Dr. Muñoz, patient and nursing staff. Care coordination, chart review, and discharge paperwork took approximately 36 minutes. - Time spent with patient Time with patient DS: Greater than 30 minutes Diagnosis - Discharge Diagnosis (1) Atypical chest pain Status: Resolved (2) Congestive heart failure Status: Chronic (3) Atrial fibrillation with RVR Status: Resolved (4) Kidney mass Status: Chronic (5) COPD (chronic obstructive pulmonary disease) Status: Chronic (6) Tobacco abuse Status: Chronic (7) Hypokalemia Status: Resolved (8) History of mitral valve replacement with mechanical valve Status: Chronic Discharge Plan - Discharge Data Disposition: Disch To Home/Self Care Condition at Discharge: Stable Discharge Diet: advance to your usual diet Activity: resume usual activities as tolerated Hygiene: may shower Driving: no restrictions Contact your physician if you experience:: fever over 101, Nausea/Vomiting, Shortness of breath - Discharge Medications New Amiodarone Tab [Cordarone Tab] 400 mg PO DAILY #60 tablet Continue ALPRAZolam [Xanax] 0.5 mg PO QAM Warfarin [Coumadin] 7.5 mg PO DAILY Potassium Chloride 8 meq PO DAILY Atorvastatin [Lipitor] 40 mg PO BEDTIME Venlafaxine [Effexor] 75 mg PO DAILY Docusate Sodium 100 mg PO DAILY Torsemide 40 mg PO BID Spironolactone 25 mg PO DAILY Metoprolol Tartrate Tab [Lopressor Tab] 25 mg PO BID Oxymorphone HCl [Opana ER] 30 mg PO BID ALPRAZolam [Xanax] 2 mg PO BEDTIME Tiotropium Inhalation [Spiriva Handihaler] 18 mcg INH DAILY Albuterol Inhaler [Proventil Inhaler] 2 puff INH Q6H PRN PRN Reason: Shortness Of Breath/Wheezing Fluticasone/Salmeterol 250-50 [Advair 250-50] 1 puff INH BID Discontinued Amiodarone Tab [Cordarone Tab] 200 mg PO DAILY - Follow Up or Referral Follow Up: Low Bee MD [Physician] - 2 Weeks Rajesh Gomes MD [Physician] - 1 Month - Forms/Instructions Exam - Constitutional Vitals: Period Temp Pulse Resp BP Sys/Catalan Pulse Ox Last 24 Hr 97.1 F-97.9 F 71-87 17-20 89-122/52-66 93-100 Exam: 57-year-old white female, no acute distress, alert and oriented Chest clear CV regular rate and rhythm Abdomen soft and nontender Extremities no edema Discharge Results Procedures and tests throughout hospitalization: Pending Orders 02/24/17 04:00 BMP w/ Mg [Basic Metabolic Panel w/Mg] IN AM CBC [Comp Blood Count Auto Diff] IN AM Labs on day of discharge: Labs from last 24 hours 02/23/17 02/23/17 04:01 04:01 WBC 9.1 RBC 3.19 L Hgb 9.6 L Hct 29.3 L MCV 91.8 MCH 30 MCHC 32.8 RDW 13.9 Plt Count 304 MPV 10.1 Neut % (Auto) 64.0 Lymph % (Auto) 24.3 [place] % (Auto) 7.0 Eos % (Auto) 4.0 Baso % (Auto) 0.4 Neut # (Auto) 5.8 Lymph # (Auto) 2.2 [place] # (Auto) 0.6 Eos # (Auto) 0.4 Baso # (Auto) 0.0 Immature Gran % 0.3 Nucleated RBC % 0.0 Immature Gran # 0.03 Nucleated RBCs # 0.00 Sodium 144 Potassium 3.5 Chloride 107 Carbon Dioxide 29 Anion Gap 11.5 BUN 17 Creatinine 1.30 H GFR Calculation 51 BUN/Creatinine Ratio 13.00 Glucose 83 Calculated Osmolality 286.8 Calcium 8.6 Magnesium 2.2 DS: Provider Date of admission: 02/19/17 17:30 Primary care physician: Maggy Meier M.D. Attending physician on admission: Socrates Ingram MD Consults: 02/19/17 18:03 Consult to Physician [CONS] Routine Comment: Consulting Provider: Cardiology - [facility] Consult to Specialist Group: Cardiology When should Consulting Provider be notified: In am Person Notified: CECILIO Date Notified: 02/20/17 Time Notified: 07:55 02/20/17 16:32 Consult to Physician [CONS] Routine Comment: Renal mass vs cyst Consulting Provider: Jose Aguayo Person Notified: jill Date Notified: 02/20/17 Time Notified: 16:55 Discharging clinician: AMINA De La Rosa Expected date of discharge: 02/23/17
[2017-02-23 11:35] VITALS: BP 104/63
== END 2017-02-23 11:59 | disposition home or self-care (01) | DRG 309 ==
LOC: EDUNIT# → EDBD → N.ED 16:54 → SUATTDRO 17:30 → N.EDINP 17:30 → N.TELES 18:30
PROVIDERS: ADMIT Internal Medicine; ATTEND Family Medicine